=== PATIENT | male | born 1960 | race Caucasian/White ===

== ENCOUNTER 2017-06-16 10:27 | Inpatient (IN) | payer SELFPAY ==
[2017-06-16] MEDS ORDERED: Succinylcholine Chloride 20 MG/ML 10 ml SYRINGE FS ONE (10:35)
[2017-06-16] MEDS ORDERED: Propofol 1,000 MG/100 ML VIAL IV ONE ×2 (10:46→21:25)
[2017-06-16 11:01] LABS: #Basophils 0.1 thou/uL (0.0-0.2); #Eosinphils 0.2 thou/uL (0.0-0.7); #Lymphocytes 2.1 thou/uL (1.20-3.40); #Monocytes 1.2 thou/uL (0.11-0.59); #Neutrophils 8.5 thou/uL (1.40-6.50); %Basophils 0.7 % (0.0-1.0); %Eosinophils 1.6 % (0.0-10.0); %Monocytes 10.2 % (0.0-10.0); %Neutrophils 70.6 % (42.0-75.0); Hemoglobin 13.2 g/dL (14.0-18.0); Mean Corpuscular HGB CONC 31.6 g/dL (32.0-36.0); Mean Corpuscular Hemoglobin 27.3 pg (27.0-31.0); Mean Corpuscular Volume 86.5 fl (80.0-94.0); Mean Platelet Volume 7.8 fL (7.4-10.4); Platelet Count 342 thou/uL (130-400); RBC Distribution Width 15.1 % (11.5-14.5); Red Blood Cell (RBC) Count 4.83 mill/uL (4.70-6.10)
[2017-06-16 11:17] LABS: PTT 34.9 SEC (22.9-36.1); Prothrombin Time 13.6 SEC (12.0-14.7)
[2017-06-16 11:25] LABS: ALT (SGPT) 28 U/L (8-55); AST (SGOT) 22 U/L (5-34); Albumin 3.7 g/dL (3.5-5.0); Alcohol Less than 10 mg/dL (Less than 10); Alkaline Phosphatase 98 U/L (40-150); Anion Gap 15 mmol/L (10-20); BUN (Urea Nitrogen) 17 mg/dL (8.4-25.7); Bilirubin, Total 0.5 mg/dL (0.2-1.2); Calc. Creatinine Clearance 0 mL/min (70-130); Calcium 8.9 mg/dL (7.8-10.44); Carbon Dioxide 25 mmol/L (22-29); Chloride 102 mmol/L (98-107); Estimated GFR-MDRD Greater than 90; Globulin 3.4 g/dL (2.4-3.5); Glucose 97 mg/dL (70-105); Lipase 117 U/L (8-78); Potassium 4.6 mmol/L (3.5-5.1); Protein, Total 7.1 g/dL (6.0-8.3); Sodium 137 mmol/L (136-145)
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
[2017-06-16 11:51] LABS: Actual Bicarbonate (HCO3a) 26.6 mEq/L (22-26); Base Excess (BEa) 2.4 mEq/L (0 (+/-) 2.5); CO2 Tension 39.8 mmHg (35.0-45.0); Hematocrit-ABG 40.2 % (42.0-52.0); O2 Tension (PaO2) 52.6 mmHg (80.0-100.0); pH, Arterial 7.44 (7.35-7.45)
[2017-06-16 11:52] LABS: Analyzer IN Cardio ER; Calcium, Ionized 1.1 mmol/L (1.12-1.30); Hemoglobin (Hb) 12.1 g/dL (14.0-18.0); Puncture Site RRA
[2017-06-16 11:57] LABS: CKMB 5.6 ng/mL (0-6.6); Troponin I 0.021 ng/mL (< 0.028)
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
[2017-06-16 12:02] LABS: Bilirubin Negative (Negative); Blood, Urine Negative (Negative); Clarity CLEAR (Clear); Glucose, Urine (Dipstick) Negative (Negative); Leukocyte Negative (Negative); Nitrite Negative (Negative); Protein, Urine (Dipstick) Negative (Neg-Trace); Specific Gravity, Urine 1.032 (1.002-1.036); Urobilinogen 0.2 mg/dL (0.2-1.0)
[2017-06-16] MEDS ORDERED: Adacel (T-DAP) 0.5 ML VIAL ONE (12:07)
[2017-06-16 12:16] LABS: Amphetamine Detected (NotDetected); Benzodiazepine Screen Detected (NotDetected); Medtox Reader # READER 1; Methamphetamine Detected (NotDetected)
[2017-06-16 12:17] LABS: Barbiturates Screen Not Detected (NotDetected); Cocaine Metabolite Screen Not Detected (NotDetected); Medtox Control Line Valid? VALID (VALID); Methadone Not Detected (NotDetected); Opiate Screen Not Detected (NotDetected); Oxycodone Screen Not Detected (NotDetected); Phencyclidine (PCP) Not Detected (NotDetected); THC/Cannabinoid Screen Not Detected (NotDetected); Tricyclic Screen Not Detected (NotDetected)
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
[2017-06-16] MEDS ORDERED: Dextrose 5% in Water 1,000 ML IV PRN (13:12)
[2017-06-16] MEDS ORDERED: Dextrose 50% Abboject 50 ML SYRINGE SLOW IVP PRN (13:12)
[2017-06-16] MEDS ORDERED: Ondansetron HCl/PF 4 MG/2 ML Vial IVP PRN (13:12)
[2017-06-16 13:46] VITALS: BMI 35.3
[2017-06-16 13:50] LABS: Magnesium 2.4 mg/dL (1.6-2.6); Phosphorus 3.6 mg/dL (2.3-4.7)
[2017-06-16] MEDS: Sodium Chloride 0.9% 1,000 ML IV SCH ×2 (14:00→21:45)
--- NOTE | 2017-06-16 14:13 | ULT ---
ULTRASOUND WITH DOPPLER DUPLEX VENOUS LOWER EXTREMITIES BILATERAL: HISTORY: 56-year-old male with bilateral lower extremity edema. TECHNIQUE: Color flow Doppler, spectral waveform analysis of pulsed Doppler, and joshua-scale imaging with daniel viktor and augmentation, were used to evaluate the bilateral common femoral, femoral, popliteal, bed worker ior tibial, and superficial femoral, veins; and the proximal portions of the profunda femoral and gre ater saphenous, veins. FINDINGS: There is normal compressibility, demonstration of blood flow by color Doppler and pulsed Doppler, and response to augmentation, in all interrogated veins. IMPRESSION: Negative. No deep vein thrombosis in the bilateral lower extremities. edil POS: [facility]
[2017-06-16 14:56] LABS: Lactic Acid 3.5 mmol/L (0.5-2.2)
[2017-06-16] MEDS ORDERED: FLU VACC QS2017-18 36 mo. & older 0.5 ML SYRINGE IM ONE (15:15)
[2017-06-16] MEDS ORDERED: ISOVUE-370 76%-LOCM 1 ML ONE (16:52)
[2017-06-16] MEDS ORDERED: Morphine 4 MG/ML Carpuject SLOW IVP PRN (19:52)
[2017-06-16] MEDS: Famotidine/PF 20 mg/2ml Vial SLOW IVP SCH (20:35)
[2017-06-16] MEDS ORDERED: Labetalol HCl 100 MG/20 ML VIAL SLOW IVP PRN (20:39)
[2017-06-16] MEDS: hydrALAZINE 20 MG/ML VIAL SLOW IVP PRN ×2 (20:59→21:00)
[2017-06-16] MEDS ORDERED: Famotidine 40 MG/4 ML VIAL SLOW IVP SCH (21:00)
[2017-06-16] MEDS ORDERED: Sedation Protocol FS ONE (21:29)
[2017-06-16] MEDS ORDERED: DISCONTINUE PREVIOUS NARCOTIC PAIN MEDICATIONS AND BENZODIAZEPINES FS SCH (21:30)
[2017-06-16] MEDS ORDERED: Lorazepam 2 MG/ML VIAL SLOW IVP PRN (21:30)
[2017-06-16] MEDS ORDERED: Morphine 2 MG/ML SYRINGE SLOW IVP PRN (21:30)
[2017-06-16] MEDS ORDERED: fentaNYL Citrate/PF 2,000 MCG in Sodium Chloride 0.9% 60 ML IV SCH (21:30)
[2017-06-17] MEDS: Propofol 1,000 MG/100 ML VIAL IV PRN ×2 (00:12→03:43)
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
[2017-06-17 04:33] LABS: #Eosinphils 0.1 thou/uL (0.0-0.7); #Lymphocytes 1.6 thou/uL (1.20-3.40); #Monocytes 0.9 thou/uL (0.11-0.59); #Neutrophils 6.7 thou/uL (1.40-6.50); %Basophils 0.2 % (0.0-1.0); %Eosinophils 0.9 % (0.0-10.0); %Lymphocytes 17.2 % (21.0-51.0); %Monocytes 9.4 % (0.0-10.0); %Neutrophils 72.3 % (42.0-75.0); Hemoglobin 11.8 g/dL (14.0-18.0); Mean Corpuscular HGB CONC 33.1 g/dL (32.0-36.0); Mean Corpuscular Hemoglobin 27.8 pg (27.0-31.0); Platelet Count 330 thou/uL (130-400); RBC Distribution Width 15.5 % (11.5-14.5); Red Blood Cell (RBC) Count 4.24 mill/uL (4.70-6.10); White Blood Cell (WBC) Count 9.3 thou/uL (4.8-10.8)
[2017-06-17 04:37] LABS: Anion Gap 13 mmol/L (10-20); BUN (Urea Nitrogen) 14 mg/dL (8.4-25.7); Calc. Creatinine Clearance 181 mL/min (70-130); Calcium 8.2 mg/dL (7.8-10.44); Carbon Dioxide 23 mmol/L (22-29); Chloride 107 mmol/L (98-107); Estimated GFR-MDRD Greater than 90; Glucose 99 mg/dL (70-105); Potassium 3.4 mmol/L (3.5-5.1); Sodium 140 mmol/L (136-145)
[2017-06-17] MEDS: Sodium Chloride 0.9% 1,000 ML IV SCH (05:37)
[2017-06-17 07:20] LABS: Actual Bicarbonate (HCO3a) 22.6 mEq/L (22-26); Base Excess (BEa) 0.4 mEq/L (0 (+/-) 2.5); CO2 Tension 28.4 mmHg (35.0-45.0); Calcium, Ionized 1.1 mmol/L (1.12-1.30); Hematocrit-ABG 34.4 % (42.0-52.0); Hemoglobin (Hb) 10.9 g/dL (14.0-18.0); O2 Tension (PaO2) 59.7 mmHg (80.0-100.0); pH, Arterial 7.52 (7.35-7.45)
[2017-06-17 07:21] LABS: Puncture Site RRA
[2017-06-17 08:31] LABS: Phosphorus 2.5 mg/dL (2.3-4.7)
[2017-06-17] MEDS: Enoxaparin Sodium 40 MG/0.4 ML SYRINGE SC SCH ×2 (08:51→21:14)
[2017-06-17] MEDS: Famotidine/PF 20 mg/2ml Vial SLOW IVP SCH ×2 (08:51→21:02)
--- NOTE | 2017-06-17 08:57 | RAD ---
PORTABLE CHEST: Date: 06/17/17 Time: 0442 hours HISTORY: Respiratory failure. FINDINGS/IMPRESSION: Comparison made with exam from previous day. Endotracheal and nasogastric tubes are again seen. There are patchy areas of consolidation in the low er lung zones. No pneumothoraces are seen. Small pleural effusions cannot be excluded. POS: [facility]
[2017-06-17] MEDS ORDERED: Acetaminophen 650 MG Suppository PR PRN (09:15)
[2017-06-17] MEDS ORDERED: Furosemide 20 MG/2 ML VIAL SLOW IVP SCH (12:30)
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
[2017-06-17] MEDS: Oxymetazoline HCl 0.05% ( 15 ML ) NASAL SCH ×2 (15:00→21:02)
[2017-06-17] MEDS: hydrALAZINE 20 MG/ML VIAL SLOW IVP PRN ×2 (17:56→22:19)
[2017-06-17] MEDS: Amoxicillin/Potassium Clav 875 MG TAB PO SCH (21:00)
[2017-06-17] MEDS: Acetaminophen 325 MG TAB PO PRN (21:00)
[2017-06-17] MEDS: Furosemide 20 MG/2 ML VIAL SLOW IVP SCH (21:02)
[2017-06-17] MEDS ORDERED: Enoxaparin Sodium 30 MG/0.3 ML SYRINGE SC SCH (21:15)
--- NOTE | 2017-06-17 21:34 | PRG ---
DATE OF SERVICE: 06/17/2017 SUBJECTIVE: This patient has been extubated, a 56-year-old male status post overdose. OBJECTIVE: VITAL SIGNS: Reviewed and is otherwise had been stable. Physical exam is unremarkable. ASSESSMENT AND PLAN: Continue care as detailed in daily progress note. Continue to monitor. DISCHARGE DISPOSITION: Pending.
[2017-06-18 04:35] LABS: Anion Gap 11 mmol/L (10-20); BUN (Urea Nitrogen) 11 mg/dL (8.4-25.7); Calc. Creatinine Clearance 181 mL/min (70-130); Calcium 8.5 mg/dL (7.8-10.44); Carbon Dioxide 26 mmol/L (22-29); Chloride 105 mmol/L (98-107); Estimated GFR-MDRD Greater than 90; Glucose 108 mg/dL (70-105); Magnesium 2.2 mg/dL (1.6-2.6); Phosphorus 3.3 mg/dL (2.3-4.7); Potassium 3.3 mmol/L (3.5-5.1); Sodium 139 mmol/L (136-145)
[2017-06-18] MEDS: Amoxicillin/Potassium Clav 875 MG TAB PO SCH ×2 (08:47→20:47)
[2017-06-18] MEDS: Famotidine 20 MG TAB PO SCH ×2 (08:48→20:47)
[2017-06-18] MEDS: Furosemide 20 MG/2 ML VIAL SLOW IVP SCH (08:48)
[2017-06-18] MEDS: Oxymetazoline HCl 0.05% ( 15 ML ) NASAL SCH ×2 (08:49→14:46)
[2017-06-18] MEDS: Enoxaparin Sodium 30 MG/0.3 ML SYRINGE SC SCH ×2 (08:51→20:48)
[2017-06-18] MEDS: Acetaminophen 325 MG TAB PO PRN ×4 (08:59→20:59)
[2017-06-18] MEDS ORDERED: Potassium Chloride 20 MEQ TAB PO SCH (09:45)
[2017-06-18] MEDS: hydrALAZINE 20 MG/ML VIAL SLOW IVP PRN (10:17)
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
[2017-06-18] MEDS ORDERED: Sodium Chloride 0.65% Nasal 44 ML BOT EA NARE PRN (15:28)
[2017-06-18] MEDS ORDERED: Carvedilol 3.125 MG TAB PO SCH (17:00)
[2017-06-18] MEDS: Metoprolol Tartrate 50 MG TAB PO SCH (21:30)
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
[2017-06-19 06:20] LABS: Anion Gap 9 mmol/L (10-20); BUN (Urea Nitrogen) 16 mg/dL (8.4-25.7); Calc. Creatinine Clearance 177 mL/min (70-130); Calcium 9.1 mg/dL (7.8-10.44); Carbon Dioxide 29 mmol/L (22-29); Chloride 107 mmol/L (98-107); Estimated GFR-MDRD Greater than 90; Glucose 101 mg/dL (70-105); Magnesium 2.5 mg/dL (1.6-2.6); Phosphorus 3.4 mg/dL (2.3-4.7); Potassium 3.7 mmol/L (3.5-5.1); Sodium 141 mmol/L (136-145)
[2017-06-19] MEDS ORDERED: Potassium Chloride 10 MEQ TAB PO SCH (08:00)
[2017-06-19] MEDS: Metoprolol Tartrate 50 MG TAB PO SCH (08:25)
[2017-06-19] MEDS: Enoxaparin Sodium 30 MG/0.3 ML SYRINGE SC SCH (08:25)
[2017-06-19] MEDS: Famotidine 20 MG TAB PO SCH (08:25)
[2017-06-19] MEDS: Amoxicillin/Potassium Clav 875 MG TAB PO SCH (08:25)
[2017-06-19] MEDS ORDERED: Furosemide 20 MG TAB PO SCH (09:00)
[2017-06-19 12:28] VITALS: BP 130/75; TEMP 99
== END 2017-06-19 14:04 | disposition home or self-care (01) | DRG 82 ==
LOC: ERS 10:27 → CCU 12:55 → SURG B 06-18 17:26
PROVIDERS: ADMIT Surgery; ATTEND Surgery
PROC: 5A1945Z Respiratory Ventilation, 24-96 Consecutive Hours (ICD-10-PCS; principal; 2017-06-16)
PROC: 0BH17EZ Insertion of Endotracheal Airway into Trachea, Via Natural or Artificial Opening (ICD-10-PCS; 2017-06-16)
PROC: 3E0234Z Introduction of Serum, Toxoid and Vaccine into Muscle, Percutaneous Approach (ICD-10-PCS; 2017-06-16)
DX: S06.2X9A Diffuse traumatic brain injury with loss of consciousness of unspecified duration, initial encounter (principal); J18.9 Pneumonia, unspecified organism; J96.00 Acute respiratory failure, unspecified whether with hypoxia or hypercapnia; I50.33 Acute on chronic diastolic (congestive) heart failure; I11.0 Hypertensive heart disease with heart failure; R40.2310 Coma scale, best motor response, none, unspecified time; R40.2110 Coma scale, eyes open, never, unspecified time; R40.2210 Coma scale, best verbal response, none, unspecified time; V49.40XA Driver injured in collision with unspecified motor vehicles in traffic accident, initial encounter; F19.10 Other psychoactive substance abuse, uncomplicated; Z23 Encounter for immunization; E66.01 Morbid (severe) obesity due to excess calories; M19.90 Unspecified osteoarthritis, unspecified site; G47.33 Obstructive sleep apnea (adult) (pediatric); Z72.0 Tobacco use; E87.6 Hypokalemia; Z68.35 Body mass index [BMI] 35.0-35.9, adult
CPT/HCPCS: 31500; 36415; 51702; 70450; 71045; 71260; 72125; 74177; 80048; 80053; 80306; 80307; 81003; 82550; 82553; 82805; 83605; 83690; 83735; 83880; 84100; 84443; 84484; 85025; 85610; 85730; 86850; 86900; 86901; 87070; 87077; 87205; 89220; 90471; 90715; 93005; 93306; 93970; 94002; 94003; 94640; 94660; 94760; 96365; 96366; G0390; G8978-GP-CJ; G8979-GP-CI; G8987-GO-CK; G8988-GO-CK; G8989-GO-CK; J0360; J1650; J1940; J2704; J7620; S0028

== ENCOUNTER 2018-09-17 09:32 | Outpatient (CLI) | payer OTHER ==
--- NOTE | 2018-09-17 10:36 | RAD ---
EXAM: 3 views of the left knee HISTORY: Knee pain COMPARISON: None FINDINGS: No knee effusion is seen. There is no evidence of acute fracture or dislocation. Moderate t ricompartmental joint space narrowing and osteophyte formation is seen consistent with osteoarthritis. No soft tissue swelling is present. IMPRESSION: Moderate left knee osteoarthritis
--- NOTE | 2018-09-17 11:14 | RAD ---
RIGHT KNEE 3 VIEWS: HISTORY: Knee pain. FINDINGS: Moderate degenerative change is present. Loss of medial joint space. Prominent spurring from the me dial joint compartment involving medial, femoral, and tibial condyles. Prominent spurring and narrow ing at the patella femoral joint. Possible small joint effusion. IMPRESSION: Moderate to severe degenerative changes primarily involving medial joint space and patella femoral nalini int. POS: [facility]
== END 2018-09-17 09:33 | disposition home or self-care (01) ==
LOC: SCSRAD 09:32
PROVIDERS: ATTEND Family Medicine
DX: M25.562 Pain in left knee (principal); M25.561 Pain in right knee; M17.11 Unilateral primary osteoarthritis, right knee; M17.12 Unilateral primary osteoarthritis, left knee

== ENCOUNTER 2022-03-19 07:43 | Inpatient (IN) | payer OTHER ==
[2022-03-16 15:36] LABS: Bilirubin Neg (Negative); Blood, Urine 10 (Negative); Clarity Clear (Clear); Glucose, Urine (Dipstick) Normal (Negative); Ketone, Urine Negative (Negative); Leukocyte Negative (Negative); Nitrite Negative (Negative); Protein, Urine (Dipstick) Negative (Neg-Trace); Specific Gravity, Urine 1.015 (1.005-1.030); Urobilinogen Normal mg/dL (Less than 2)
[2022-03-16 15:38] LABS: #Basophils 0.1 10x3/uL (0.0-0.2); #Eosinphils 0.2 10x3/uL (0.0-0.5); #Monocytes 0.7 10x3/uL (0.0-1.1); #Neutrophils 4.7 10x3/uL (1.5-8.4); %Basophils 0.7 % (0.0-2.0); %Eosinophils 2.7 % (0.0-6.0); %Lymphocytes 20.8 % (18.0-47.0); %Monocytes 9.8 % (0.0-10.0); %Neutrophils 65.7 % (40.0-75.0); Hemoglobin 14.8 g/dL (13.5-17.5); Mean Corpuscular HGB CONC 32.6 g/dL (32.0-36.0); Mean Corpuscular Hemoglobin 29.9 pg (27.0-33.0); Mean Corpuscular Volume 91.7 fl (81.2-95.1); Platelet Count 370 10x3/uL (150-450); RBC Distribution Width 14.3 % (11.5-14.5); Red Blood Cell (RBC) Count 4.95 10x6/uL (4.32-5.72); White Blood Cell (WBC) Count 7.1 10x3/uL (3.5-10.5)
[2022-03-16 16:00] LABS: INR-International Normal Ratio 0.9; Prothrombin Time 10.2 sec (9.5-12.1)
[2022-03-16 16:02] LABS: Anion Gap 15 mmol/L (10-20); BUN (Urea Nitrogen) 13 mg/dL (8.4-25.7); Calc. Creatinine Clearance 0 mL/min (70-130); Calcium 9.3 mg/dL (7.8-10.44); Carbon Dioxide 28 mmol/L (22-29); Chloride 104 mmol/L (98-107); Estimated GFR 100; Glucose 82 mg/dL (70-105); Potassium 4.1 mmol/L (3.5-5.1); Sodium 143 mmol/L (136-145)
[2022-03-19] MEDS ORDERED: Sodium Chloride 0.9% 100 ML ONE ×2 (08:11→09:43)
[2022-03-19] MEDS ORDERED: Tranexamic Acid 1,000 MG/10 ML VIAL ONE ×2 (08:11→11:49)
[2022-03-19] MEDS ORDERED: VANCOMYCIN 2 GRAM/500 ML BAG 2 GM in Premix Bag 1 BAG IVPB SCH ×3 (08:15→21:00)
[2022-03-19] MEDS ORDERED: Ropivacaine 0.5% HCl/PF (150 MG/30 ML VIAL) ONE (08:24)
[2022-03-19] MEDS ORDERED: Midazolam HCl 2 mg/2 ml Vial ONE (08:24)
[2022-03-19] MEDS ORDERED: FENTANYL 50 MCG/ML 1 ML VIAL ONE ×2 (08:24→15:06)
[2022-03-19] MEDS ORDERED: Cefepime 2 GM in Sodium Chloride 0.9% 100 ML IVPB SCH (08:30)
[2022-03-19] MEDS ORDERED: CEFAZOLIN 2 GM in Sodium Chloride 0.9% 100 ML IVPB SCH (08:45)
[2022-03-19 09:18] LABS: SARS-CoV-2 NAA Rapid Test Not Detected (NotDetected)
[2022-03-19] MEDS ORDERED: Bupivacaine PF 0.5% 30 ML VIAL ONE (09:29)
[2022-03-19] MEDS ORDERED: CEFAZOLIN 2 GM VIAL ONE (09:43)
[2022-03-19] MEDS ORDERED: SUGAMMADEX SODIUM 200 MG/2 ML VIAL ONE (09:44)
[2022-03-19] MEDS ORDERED: Lidocaine 1% (PF) 30 ML VIAL ONE (10:03)
[2022-03-19] MEDS ORDERED: methylPREDNISolone Acetate 40 mg/ml Vial ONE (10:03)
[2022-03-19] MEDS ORDERED: ePHEDrine 50 MG/ML VIAL ONE (10:09)
[2022-03-19] MEDS ORDERED: Ondansetron PF 4 MG/2 ML Vial ONE (10:09)
[2022-03-19] MEDS ORDERED: PHENYLEPHRINE-NS 100 MCG/ML 10 ML SYRINGE ONE (10:09)
[2022-03-19] MEDS ORDERED: Rocuronium Bromide 10 MG/ML (10ML VIAL) ONE (10:09)
[2022-03-19] MEDS ORDERED: Zolpidem Tartrate 5 MG TAB PO PRN ×2 (10:12→12:00)
[2022-03-19] MEDS ORDERED: traMADol HCl 50 MG TAB PO PRN ×2 (10:12→12:00)
[2022-03-19] MEDS ORDERED: diphenhydrAMINE 25 MG CAP PO PRN (10:12)
[2022-03-19] MEDS ORDERED: Promethazine HCl 25 MG/ML VIAL IM PRN ×3 (10:12→12:12)
[2022-03-19] MEDS ORDERED: Acetaminophen 325 MG TAB PO PRN (10:12)
[2022-03-19] MEDS ORDERED: Ondansetron PF 4 MG/2 ML Vial IVP PRN ×2 (10:12→12:00)
[2022-03-19] MEDS ORDERED: Tranexamic Acid 1,000 MG in Sodium Chloride 0.9% 100 ML IVPB SCH (10:15)
[2022-03-19] MEDS ORDERED: FENTANYL 50 MCG/ML 1 ML VIAL SLOW IVP PRN (11:25)
[2022-03-19] MEDS ORDERED: HYDROmorphone 0.5 MG/0.5 ML SYRINGE ONE (11:49)
[2022-03-19] MEDS ORDERED: Ropivacaine 0.2% 550 ML 550 ML NERVE BLCK SCH (12:00)
[2022-03-19] MEDS ORDERED: Ondansetron HCl/PF 4 MG/2 ML Vial IVP PRN (12:12)
[2022-03-19] MEDS ORDERED: Promethazine HCl 25 MG/ML VIAL IVPB PRN (12:12)
[2022-03-19] MEDS ORDERED: Metoprolol Tartrate 5 MG/5 ML VIAL ONE (13:08)
[2022-03-19] MEDS ORDERED: Meperidine HCl/PF 25 MG/ML VIAL ONE (13:29)
[2022-03-19 15:05] LABS: Actual Bicarbonate (HCO3a) 25.4 mEq/L (22-28); CO2 Tension 43.8 mmHg (35.0-45.0); Calcium, Ionized (arterial) 1.14 mmol/L (1.12-1.30); Carboxyhemoglobin (COHb) 0.9 gm% (0.0-3.0); Hemoglobin (Hb) 14.6 g/dL (14.0-18.0); O2 Tension (PaO2), arterial 57.6 mmHg (80.0-100.0); Potassium - ABG Lab 4.11 mmol/L (3.70-5.30); Puncture Site RRA; pH, Arterial 7.38 (7.35-7.45)
[2022-03-19 15:51] VITALS: BMI 39.7
[2022-03-19] MEDS: CEFAZOLIN 2 GM in Sodium Chloride 0.9% 100 ML IVPB SCH (18:16)
[2022-03-19] MEDS: Aspirin 81 mg Enteric Coated Tablet PO SCH (20:03)
[2022-03-19] MEDS: Ferrous Gluconate 324 MG TAB PO SCH (20:04)
[2022-03-19] MEDS: Senokot S 8.6-50 MG TAB PO SCH (20:04)
[2022-03-19] MEDS: Furosemide 40 MG TAB PO SCH (20:04)
[2022-03-19] MEDS: HYDROcodone/Acetaminophen 10/325 mg Tablet PO PRN (20:04)
[2022-03-19] MEDS: Lisinopril 20 MG TAB PO SCH (20:04)
[2022-03-20] MEDS: CEFAZOLIN 2 GM in Sodium Chloride 0.9% 100 ML IVPB SCH (03:06)
[2022-03-20] MEDS: HYDROcodone/Acetaminophen 10/325 mg Tablet PO PRN ×2 (03:07→21:08)
[2022-03-20 05:53] LABS: Hemoglobin 13.7 g/dL (14.0-18.0); Mean Corpuscular Hemoglobin 30.4 pg (27.0-31.0); Mean Corpuscular Volume 95.2 fl (78.0-98.0); Mean Platelet Volume 7.2 fL (7.4-10.4); Platelet Count 307 10x3/uL (130-400); RBC Distribution Width 13.5 % (11.5-14.5); Red Blood Cell (RBC) Count 4.52 mill/uL (4.70-6.10); White Blood Cell (WBC) Count 11.8 10x3/uL (4.8-10.8)
[2022-03-20 06:33] LABS: Anion Gap 12 mmol/L (10-20); BUN (Urea Nitrogen) 13 mg/dL (8.4-25.7); Calc. Creatinine Clearance 163 mL/min (70-130); Calcium 8.6 mg/dL (7.8-10.44); Carbon Dioxide 27 mmol/L (22-29); Chloride 100 mmol/L (98-107); Estimated GFR 99; Glucose 118 mg/dL (70-105); Potassium 3.8 mmol/L (3.5-5.1); Sodium 135 mmol/L (136-145)
[2022-03-20] MEDS: Multivitamin W/ Minerals 1 TAB PO SCH (09:14)
[2022-03-20] MEDS: Metoprolol Tartrate 100 MG TAB PO SCH (09:14)
[2022-03-20] MEDS: Aspirin 81 mg Enteric Coated Tablet PO SCH ×2 (09:14→21:06)
[2022-03-20] MEDS: Lisinopril 20 MG TAB PO SCH ×2 (09:14→21:07)
[2022-03-20] MEDS: Senokot S 8.6-50 MG TAB PO SCH ×2 (09:14→21:08)
[2022-03-20] MEDS: Potassium Chloride 20 MEQ TAB PO SCH (09:14)
[2022-03-20] MEDS: Furosemide 40 MG TAB PO SCH ×2 (09:14→21:08)
[2022-03-20] MEDS: Ferrous Gluconate 324 MG TAB PO SCH ×2 (09:15→21:08)
[2022-03-20] MEDS: Clindamycin 150 MG CAP PO SCH ×2 (10:43→19:48)
[2022-03-21] MEDS: Clindamycin 150 MG CAP PO SCH ×3 (01:37→18:16)
[2022-03-21 06:27] LABS: Hemoglobin 12.7 g/dL (14.0-18.0); Mean Corpuscular HGB CONC 31.7 g/dL (32.0-36.0); Mean Corpuscular Hemoglobin 29.9 pg (27.0-31.0); Mean Corpuscular Volume 94.4 fl (78.0-98.0); Mean Platelet Volume 7.9 fL (7.4-10.4); Platelet Count 262 10x3/uL (130-400); RBC Distribution Width 13.7 % (11.5-14.5); Red Blood Cell (RBC) Count 4.25 mill/uL (4.70-6.10); White Blood Cell (WBC) Count 14.3 10x3/uL (4.8-10.8)
[2022-03-21] MEDS: HYDROcodone/Acetaminophen 10/325 mg Tablet PO PRN ×2 (09:00→20:48)
[2022-03-21] MEDS: Metoprolol Tartrate 100 MG TAB PO SCH (09:01)
[2022-03-21] MEDS: Aspirin 81 mg Enteric Coated Tablet PO SCH ×2 (09:02→20:49)
[2022-03-21] MEDS: Ferrous Gluconate 324 MG TAB PO SCH ×2 (09:02→20:49)
[2022-03-21] MEDS: Lisinopril 20 MG TAB PO SCH ×2 (09:02→20:49)
[2022-03-21] MEDS: Potassium Chloride 20 MEQ TAB PO SCH (09:02)
[2022-03-21] MEDS: Senokot S 8.6-50 MG TAB PO SCH ×2 (09:02→20:49)
[2022-03-21] MEDS: Multivitamin W/ Minerals 1 TAB PO SCH (09:02)
[2022-03-21] MEDS: Furosemide 40 MG TAB PO SCH ×2 (09:02→20:49)
[2022-03-22] MEDS: Clindamycin 150 MG CAP PO SCH ×2 (01:34→08:56)
[2022-03-22 05:50] LABS: Mean Corpuscular HGB CONC 31.7 g/dL (32.0-36.0); Mean Corpuscular Hemoglobin 30.3 pg (27.0-31.0); Mean Corpuscular Volume 95.6 fl (78.0-98.0); Mean Platelet Volume 7.6 fL (7.4-10.4); Platelet Count 276 10x3/uL (130-400); RBC Distribution Width 13.6 % (11.5-14.5); Red Blood Cell (RBC) Count 4.29 mill/uL (4.70-6.10); White Blood Cell (WBC) Count 13.5 10x3/uL (4.8-10.8)
[2022-03-22] MEDS: Senokot S 8.6-50 MG TAB PO SCH (08:54)
[2022-03-22] MEDS: HYDROcodone/Acetaminophen 10/325 mg Tablet PO PRN (08:54)
[2022-03-22] MEDS: Furosemide 40 MG TAB PO SCH (08:54)
[2022-03-22] MEDS: Aspirin 81 mg Enteric Coated Tablet PO SCH (08:54)
[2022-03-22] MEDS: Ferrous Gluconate 324 MG TAB PO SCH (08:54)
[2022-03-22] MEDS: Multivitamin W/ Minerals 1 TAB PO SCH (08:56)
[2022-03-22] MEDS: Potassium Chloride 20 MEQ TAB PO SCH (08:56)
[2022-03-22] MEDS: Lisinopril 20 MG TAB PO SCH (08:56)
[2022-03-22] MEDS: Metoprolol Tartrate 100 MG TAB PO SCH (08:56)
[2022-03-22 12:16] VITALS: BP 134/89; TEMP 97.9
== END 2022-03-22 15:04 | disposition home or self-care (01) | DRG 470 ==
LOC: SDC 07:43 → SJJU 15:35
PROVIDERS: ADMIT Orthopaedic Surgery; ATTEND Orthopaedic Surgery
PROC: 0SRC0J9 Replacement of Right Knee Joint with Synthetic Substitute, Cemented, Open Approach (ICD-10-PCS; principal; 2022-03-19)
PROC: 3E0U33Z Introduction of Anti-inflammatory into Joints, Percutaneous Approach (ICD-10-PCS; 2022-03-19)
DX: M17.0 Bilateral primary osteoarthritis of knee (principal); Z20.822 Contact with and (suspected) exposure to COVID-19; G47.33 Obstructive sleep apnea (adult) (pediatric); E66.01 Morbid (severe) obesity due to excess calories; F32.A Depression, unspecified; F41.9 Anxiety disorder, unspecified; I11.0 Hypertensive heart disease with heart failure; I50.810 Right heart failure, unspecified; I27.81 Cor pulmonale (chronic); I27.20 Pulmonary hypertension, unspecified; Z79.899 Other long term (current) drug therapy; Z82.49 Family history of ischemic heart disease and other diseases of the circulatory system; Z68.39 Body mass index [BMI] 39.0-39.9, adult
CPT/HCPCS: 36415; 36600; 80048; 81003; 82805; 85025; 85027; 85610; 86850; 86900; 86901; 94640; A4306; C1713; C1776; J1030; J1170; J2001; J2175; J2250; J2405; J2795; J3010; J3370; J3490; J7030; J7620; S0020; U0002

== ENCOUNTER 2022-05-28 06:45 | Observation (INO) | payer OTHER ==
[2022-05-28] MEDS ORDERED: Ipratropium/Albuterol 3 ML NEB ONE ×2 (07:06→14:07)
[2022-05-28 07:28] LABS: #Eosinphils 0.1 thou/uL (0.0-0.7); #Lymphocytes 0.9 thou/uL (1.20-3.40); #Neutrophils 11.4 thou/uL (1.40-6.50); %Basophils 0.2 % (0.0-1.0); %Eosinophils 0.5 % (0.0-10.0); %Lymphocytes 6.7 % (21.0-51.0); %Monocytes 7.2 % (0.0-10.0); %Neutrophils 85.5 % (42.0-75.0); Hemoglobin 13.9 g/dL (14.0-18.0); Mean Corpuscular HGB CONC 33.3 g/dL (32.0-36.0); Mean Corpuscular Hemoglobin 30.5 pg (27.0-31.0); Mean Corpuscular Volume 91.5 fl (78.0-98.0); Mean Platelet Volume 8.2 fL (7.4-10.4); Platelet Count 306 10x3/uL (130-400); RBC Distribution Width 14.9 % (11.5-14.5); Red Blood Cell (RBC) Count 4.56 mill/uL (4.70-6.10); White Blood Cell (WBC) Count 13.3 10x3/uL (4.8-10.8)
[2022-05-28 07:48] LABS: ALT (SGPT) 22 U/L (8-55); AST (SGOT) 23 U/L (5-34); Albumin 3.8 g/dL (3.5-5.0); Alkaline Phosphatase 87 U/L (40-110); Anion Gap 15 mmol/L (10-20); BUN (Urea Nitrogen) 12 mg/dL (8.4-25.7); Bilirubin, Total 1.1 mg/dL (0.2-1.2); Calc. Creatinine Clearance 0 mL/min (70-130); Calcium 8.9 mg/dL (7.8-10.44); Carbon Dioxide 25 mmol/L (22-29); Chloride 102 mmol/L (98-107); Estimated GFR 102; Globulin 4.1 g/dL (2.4-3.5); Glucose 98 mg/dL (70-105); Potassium 3.8 mmol/L (3.5-5.1); Protein, Total 7.9 g/dL (6.0-8.3); Sodium 138 mmol/L (136-145)
[2022-05-28 09:40] LABS: SARS-CoV-2 NAA Rapid Test Not Detected (NotDetected)
[2022-05-28] MEDS ORDERED: Guaifenesin DM 100-10/5 ML UDCUP PO PRN (09:54)
[2022-05-28] MEDS ORDERED: Ondansetron PF 4 MG/2 ML Vial IVP PRN (09:54)
[2022-05-28] MEDS ORDERED: Senokot S 8.6-50 MG TAB PO PRN (09:54)
[2022-05-28] MEDS ORDERED: HYDROcodone/Acetaminophen 5/325 mg Tablet PO PRN (09:54)
[2022-05-28 11:05] LABS: Amphetamine Detected (NotDetected); Barbiturates Screen Not Detected (NotDetected); Benzodiazepine Screen Not Detected (NotDetected); Cocaine Metabolite Screen Not Detected (NotDetected); Methadone Not Detected (NotDetected); Methamphetamine Detected (NotDetected); Opiate Screen Not Detected (NotDetected); Oxycodone Screen Not Detected (NotDetected); Phencyclidine (PCP) Not Detected (NotDetected); THC/Cannabinoid Screen Not Detected (NotDetected); Tricyclic Screen Not Detected (NotDetected)
[2022-05-28] MEDS ORDERED: Iopamidol-370 76% 500 ML 1 ML ONE (11:11)
[2022-05-28] MEDS ORDERED: Acetaminophen 325 MG TAB ONE (11:19)
[2022-05-28] MEDS: Acetaminophen 325 MG TAB PO PRN (11:20)
[2022-05-28] MEDS ORDERED: methylPREDNISolone Sod Succ 40 MG VIAL ONE (11:53)
[2022-05-28] MEDS: methylPREDNISolone Sod Succ 40 MG VIAL IVP SCH ×2 (11:57→18:42)
[2022-05-28] MEDS: Ipratropium/Albuterol 3 ML NEB NEB SCH ×3 (14:10→23:24)
[2022-05-28 15:50] VITALS: BMI 37.4
[2022-05-28] MEDS: Doxycycline 100 MG CAP PO SCH (20:55)
[2022-05-28] MEDS: Lisinopril 20 MG TAB PO SCH (20:55)
[2022-05-28] MEDS ORDERED: Non-Formulary Item 1 EACH (Lisinopril [Lisinopril] 40 MG Tablet) PO SCH (21:00)
[2022-05-29] MEDS: methylPREDNISolone Sod Succ 40 MG VIAL IVP SCH ×3 (00:13→11:04)
[2022-05-29] MEDS: Acetaminophen 325 MG TAB PO PRN (05:12)
[2022-05-29 05:22] LABS: #Lymphocytes 0.6 thou/uL (1.20-3.40); #Monocytes 0.7 thou/uL (0.11-0.59); #Neutrophils 15.1 thou/uL (1.40-6.50); %Eosinophils 0.1 % (0.0-10.0); %Lymphocytes 3.8 % (21.0-51.0); %Monocytes 4.1 % (0.0-10.0); Hemoglobin 13.6 g/dL (14.0-18.0); Mean Corpuscular HGB CONC 32.7 g/dL (32.0-36.0); Mean Corpuscular Hemoglobin 30.8 pg (27.0-31.0); Mean Corpuscular Volume 94.3 fl (78.0-98.0); Mean Platelet Volume 7.9 fL (7.4-10.4); Platelet Count 328 10x3/uL (130-400); RBC Distribution Width 14.9 % (11.5-14.5); Red Blood Cell (RBC) Count 4.43 mill/uL (4.70-6.10); White Blood Cell (WBC) Count 16.4 10x3/uL (4.8-10.8)
[2022-05-29 05:40] LABS: Anion Gap 13 mmol/L (10-20); BUN (Urea Nitrogen) 11 mg/dL (8.4-25.7); Calc. Creatinine Clearance 168 mL/min (70-130); Calcium 9.9 mg/dL (7.8-10.44); Carbon Dioxide 28 mmol/L (22-29); Chloride 102 mmol/L (98-107); Estimated GFR 102; Glucose 162 mg/dL (70-105); Potassium 3.7 mmol/L (3.5-5.1); Sodium 139 mmol/L (136-145)
[2022-05-29] MEDS: Ipratropium/Albuterol 3 ML NEB NEB SCH ×2 (07:24→12:31)
[2022-05-29] MEDS: Doxycycline 100 MG CAP PO SCH (08:31)
[2022-05-29] MEDS: Lisinopril 20 MG TAB PO SCH (08:31)
[2022-05-29] MEDS ORDERED: Aspirin 81 mg Enteric Coated Tablet PO SCH (09:00)
[2022-05-29] MEDS ORDERED: Multivitamin W/ Minerals 1 TAB PO SCH (09:00)
[2022-05-29] MEDS ORDERED: Metoprolol Tartrate 100 MG TAB PO SCH (09:00)
[2022-05-29] MEDS ORDERED: Furosemide 40 MG TAB PO SCH (09:00)
[2022-05-29 13:15] VITALS: BP 145/85; TEMP 98.6
[2022-05-29] MEDS ORDERED: methylPREDNISolone Sod Succ 40 MG VIAL IVP SCH (13:30)
== END 2022-05-29 15:35 | disposition home or self-care (01) ==
LOC: ERS 06:45 → ERHOLD 09:16 → 2SW 15:24
PROVIDERS: ADMIT Internal Medicine; ATTEND Internal Medicine
DX: J44.1 Chronic obstructive pulmonary disease with (acute) exacerbation (principal); I11.0 Hypertensive heart disease with heart failure; I50.9 Heart failure, unspecified; I48.0 Paroxysmal atrial fibrillation; G47.33 Obstructive sleep apnea (adult) (pediatric); F17.220 Nicotine dependence, chewing tobacco, uncomplicated; E66.9 Obesity, unspecified; Z68.37 Body mass index [BMI] 37.0-37.9, adult; Z79.899 Other long term (current) drug therapy; Z20.822 Contact with and (suspected) exposure to COVID-19
CPT/HCPCS: 36415; 71045; 71275; 80048; 80053; 80306; 83880; 84484; 85025; 93005; 94640; 96372; 96374; 96376; G0378; J1650; J2920; J7620; Q9967; U0002

== ENCOUNTER 2022-08-02 19:36 | Inpatient (IN) | payer OTHER ==
[2022-08-02 20:34] LABS: #Eosinphils 0.1 thou/uL (0.0-0.7); #Lymphocytes 2.1 thou/uL (1.20-3.40); #Neutrophils 13.1 thou/uL (1.40-6.50); %Basophils 0.2 % (0.0-1.0); %Eosinophils 0.4 % (0.0-10.0); %Neutrophils 80.4 % (42.0-75.0); Hemoglobin 12.8 g/dL (14.0-18.0); Mean Corpuscular HGB CONC 32.4 g/dL (32.0-36.0); Mean Corpuscular Hemoglobin 28.8 pg (27.0-31.0); Mean Corpuscular Volume 88.8 fl (78.0-98.0); Platelet Count 270 10x3/uL (130-400); RBC Distribution Width 15.9 % (11.5-14.5); Red Blood Cell (RBC) Count 4.46 mill/uL (4.70-6.10); White Blood Cell (WBC) Count 16.2 10x3/uL (4.8-10.8)
[2022-08-02 20:55] LABS: ALT (SGPT) 21 U/L (8-55); AST (SGOT) 16 U/L (5-34); Albumin 3.6 g/dL (3.5-5.0); Alkaline Phosphatase 100 U/L (40-110); Anion Gap 14 mmol/L (10-20); BUN (Urea Nitrogen) 13 mg/dL (8.4-25.7); Bilirubin, Total 0.8 mg/dL (0.2-1.2); Calc. Creatinine Clearance 0 mL/min (70-130); Calcium 8.9 mg/dL (7.8-10.44); Carbon Dioxide 24 mmol/L (22-29); Chloride 105 mmol/L (98-107); Estimated GFR 100; Globulin 3.5 g/dL (2.4-3.5); Glucose 139 mg/dL (70-105); Potassium 4.1 mmol/L (3.5-5.1); Protein, Total 7.1 g/dL (6.0-8.3); Sodium 139 mmol/L (136-145)
[2022-08-02] MEDS ORDERED: Furosemide 40 MG/4 ML VIAL ONE (21:12)
[2022-08-02] MEDS ORDERED: VANCOMYCIN 1.75 GM/500 ML BAG 1.75 GM in Premix Bag 1 BAG IVPB SCH (22:45)
[2022-08-02] MEDS ORDERED: Cefepime 2 GM VIAL ONE (22:57)
[2022-08-02] MEDS ORDERED: Ondansetron ODT 4 MG TAB PO PRN (23:52)
[2022-08-03 01:25] LABS: Troponin I Less than 0.010 ng/mL (< 0.028)
[2022-08-03] MEDS ORDERED: Acetaminophen 325 MG TAB ONE (02:59)
[2022-08-03] MEDS: Acetaminophen 325 MG TAB PO PRN ×3 (03:03→20:22)
[2022-08-03 05:47] LABS: #Eosinphils 0.1 thou/uL (0.0-0.7); #Lymphocytes 2.1 thou/uL (1.20-3.40); #Monocytes 0.7 thou/uL (0.11-0.59); #Neutrophils 10.3 thou/uL (1.40-6.50); %Basophils 0.2 % (0.0-1.0); %Eosinophils 0.7 % (0.0-10.0); %Lymphocytes 15.6 % (21.0-51.0); %Monocytes 5.2 % (0.0-10.0); %Neutrophils 78.3 % (42.0-75.0); Hemoglobin 12.6 g/dL (14.0-18.0); Mean Corpuscular HGB CONC 32.8 g/dL (32.0-36.0); Mean Corpuscular Hemoglobin 29.1 pg (27.0-31.0); Mean Corpuscular Volume 88.7 fl (78.0-98.0); Mean Platelet Volume 8.5 fL (7.4-10.4); Platelet Count 262 10x3/uL (130-400); Red Blood Cell (RBC) Count 4.35 mill/uL (4.70-6.10); White Blood Cell (WBC) Count 13.2 10x3/uL (4.8-10.8)
[2022-08-03 06:09] LABS: Anion Gap 13 mmol/L (10-20); BUN (Urea Nitrogen) 13 mg/dL (8.4-25.7); Calc. Creatinine Clearance 168 mL/min (70-130); Calcium 8.2 mg/dL (7.8-10.44); Carbon Dioxide 25 mmol/L (22-29); Chloride 103 mmol/L (98-107); Estimated GFR 104; Glucose 140 mg/dL (70-105); Potassium 3.4 mmol/L (3.5-5.1); Sodium 138 mmol/L (136-145)
[2022-08-03 06:16] LABS: Troponin I Less than 0.010 ng/mL (< 0.028)
[2022-08-03] MEDS ORDERED: Aspirin Chewable 81 MG TAB ONE (08:20)
[2022-08-03] MEDS ORDERED: Potassium Chloride 20 MEQ TAB ONE (08:20)
[2022-08-03] MEDS ORDERED: Furosemide 40 MG/4 ML VIAL ONE (08:20)
[2022-08-03] MEDS ORDERED: Famotidine 20 MG TAB ONE (08:20)
[2022-08-03] MEDS ORDERED: Cefepime 1 GM VIAL ONE (08:20)
[2022-08-03] MEDS: Aspirin Chewable 81 MG TAB PO SCH (08:50)
[2022-08-03] MEDS: Famotidine 20 MG TAB PO SCH ×2 (08:50→20:22)
[2022-08-03] MEDS: Metoprolol Tartrate 100 MG TAB PO SCH (08:51)
[2022-08-03] MEDS: Famotidine/PF 20 mg/2ml Vial SLOW IVP SCH ×2 (08:51→20:34)
[2022-08-03] MEDS: Lisinopril 20 MG TAB PO SCH (08:51)
[2022-08-03] MEDS: Rivaroxaban 10 MG TAB PO SCH (08:51)
[2022-08-03] MEDS: Furosemide 40 MG/4 ML VIAL SLOW IVP SCH (08:51)
[2022-08-03] MEDS: Potassium Chloride 20 MEQ TAB PO SCH (08:51)
[2022-08-03] MEDS ORDERED: Multivitamin W/ Minerals 1 TAB ONE (08:53)
[2022-08-03] MEDS: Multivitamin W/ Minerals 1 TAB PO SCH (08:55)
[2022-08-03] MEDS ORDERED: Cefepime 1 GM in Sodium Chloride 0.9% 100 ML IVPB SCH (09:00)
[2022-08-03] MEDS ORDERED: Furosemide 40 MG TAB PO SCH (09:00)
[2022-08-03] MEDS: Cefepime 2 GM in Sodium Chloride 0.9% 100 ML IVPB SCH (20:22)
[2022-08-04] MEDS: Acetaminophen 325 MG TAB PO PRN ×2 (03:44→15:45)
[2022-08-04] MEDS ORDERED: Electrolyte Replacement Protocol 1 EACH FS SCH (09:15)
[2022-08-04] MEDS: Lisinopril 20 MG TAB PO SCH (09:20)
[2022-08-04] MEDS: Cefepime 2 GM in Sodium Chloride 0.9% 100 ML IVPB SCH ×2 (09:20→21:07)
[2022-08-04] MEDS: Multivitamin W/ Minerals 1 TAB PO SCH (09:20)
[2022-08-04] MEDS: Metoprolol Tartrate 100 MG TAB PO SCH (09:20)
[2022-08-04] MEDS: Famotidine 20 MG TAB PO SCH ×2 (09:20→21:12)
[2022-08-04] MEDS: Aspirin Chewable 81 MG TAB PO SCH (09:20)
[2022-08-04] MEDS: Rivaroxaban 10 MG TAB PO SCH (09:20)
[2022-08-04] MEDS: Famotidine/PF 20 mg/2ml Vial SLOW IVP SCH (09:21)
[2022-08-04] MEDS: Furosemide 40 MG/4 ML VIAL SLOW IVP SCH (09:21)
[2022-08-04] MEDS: Potassium Chloride 20 MEQ TAB PO SCH (09:21)
[2022-08-04] MEDS ORDERED: Doxycycline 100 MG CAP PO SCH (09:30)
[2022-08-04] MEDS ORDERED: Furosemide 40 MG TAB PO SCH (09:30)
[2022-08-04] MEDS ORDERED: Electrolyte Replacement Protocol FS PRN (09:30)
[2022-08-04] MEDS ORDERED: Potassium Chloride 20 MEQ TAB PO SCH (10:00)
[2022-08-04 10:26] LABS: Anion Gap 10 mmol/L (10-20); BUN (Urea Nitrogen) 14 mg/dL (8.4-25.7); Calc. Creatinine Clearance 156 mL/min (70-130); Calcium 8.7 mg/dL (7.8-10.44); Carbon Dioxide 27 mmol/L (22-29); Chloride 103 mmol/L (98-107); Estimated GFR 101; Glucose 121 mg/dL (70-105); Magnesium 2.2 mg/dL (1.6-2.6); Phosphorus 2.7 mg/dL (2.3-4.7); Potassium 3.7 mmol/L (3.5-5.1); Sodium 136 mmol/L (136-145)
[2022-08-04] MEDS: Saccharomyces boulardii 250 MG CAP PO SCH (13:57)
[2022-08-04 14:22] LABS: Potassium 4.4 mmol/L (3.5-5.1)
[2022-08-04] MEDS ORDERED: Famotidine 20 MG TAB PO SCH (21:00)
[2022-08-04] MEDS: Doxycycline 100 MG CAP PO SCH (21:13)
[2022-08-05] MEDS: Acetaminophen 325 MG TAB PO PRN ×2 (01:14→16:28)
[2022-08-05 05:10] LABS: #Eosinphils 0.1 thou/uL (0.0-0.7); #Lymphocytes 1.6 thou/uL (1.20-3.40); #Monocytes 0.9 thou/uL (0.11-0.59); #Neutrophils 9.4 thou/uL (1.40-6.50); %Basophils 0.1 % (0.0-1.0); %Eosinophils 0.7 % (0.0-10.0); %Lymphocytes 13.3 % (21.0-51.0); %Monocytes 7.4 % (0.0-10.0); %Neutrophils 78.5 % (42.0-75.0); Anion Gap 12 mmol/L (10-20); BUN (Urea Nitrogen) 15 mg/dL (8.4-25.7); Calc. Creatinine Clearance 168 mL/min (70-130); Calcium 9.1 mg/dL (7.8-10.44); Carbon Dioxide 26 mmol/L (22-29); Chloride 104 mmol/L (98-107); Estimated GFR 103; Glucose 102 mg/dL (70-105); Hemoglobin 12.2 g/dL (14.0-18.0); Mean Corpuscular HGB CONC 32.6 g/dL (32.0-36.0); Mean Corpuscular Hemoglobin 29.3 pg (27.0-31.0); Mean Platelet Volume 8.1 fL (7.4-10.4); Platelet Count 314 10x3/uL (130-400); Potassium 4.9 mmol/L (3.5-5.1); RBC Distribution Width 15.8 % (11.5-14.5); Red Blood Cell (RBC) Count 4.16 mill/uL (4.70-6.10); Sodium 137 mmol/L (136-145)
[2022-08-05] MEDS: Aspirin Chewable 81 MG TAB PO SCH (08:48)
[2022-08-05] MEDS: Cefepime 2 GM in Sodium Chloride 0.9% 100 ML IVPB SCH ×2 (08:48→19:54)
[2022-08-05] MEDS: Rivaroxaban 10 MG TAB PO SCH (08:48)
[2022-08-05] MEDS: Famotidine 20 MG TAB PO SCH ×2 (08:48→19:54)
[2022-08-05] MEDS: Multivitamin W/ Minerals 1 TAB PO SCH (08:48)
[2022-08-05] MEDS: Lisinopril 20 MG TAB PO SCH (08:48)
[2022-08-05] MEDS: Potassium Chloride 20 MEQ TAB PO SCH (08:48)
[2022-08-05] MEDS: Furosemide 40 MG TAB PO SCH (08:48)
[2022-08-05] MEDS: Metoprolol Tartrate 50 MG TAB PO SCH ×2 (08:48→19:54)
[2022-08-05] MEDS: Doxycycline 100 MG CAP PO SCH ×2 (08:48→19:54)
[2022-08-05] MEDS: Saccharomyces boulardii 250 MG CAP PO SCH (14:49)
[2022-08-06] MEDS: Acetaminophen 325 MG TAB PO PRN ×2 (04:24→20:20)
[2022-08-06 06:38] LABS: #Eosinphils 0.1 thou/uL (0.0-0.7); #Lymphocytes 1.6 thou/uL (1.20-3.40); #Monocytes 0.9 thou/uL (0.11-0.59); #Neutrophils 9.3 thou/uL (1.40-6.50); %Basophils 0.3 % (0.0-1.0); %Lymphocytes 13.3 % (21.0-51.0); %Monocytes 7.9 % (0.0-10.0); %Neutrophils 77.6 % (42.0-75.0); Hemoglobin 10.8 g/dL (14.0-18.0); Mean Corpuscular HGB CONC 31.1 g/dL (32.0-36.0); Mean Platelet Volume 7.9 fL (7.4-10.4); Platelet Count 351 10x3/uL (130-400); RBC Distribution Width 15.6 % (11.5-14.5); Red Blood Cell (RBC) Count 3.85 mill/uL (4.70-6.10); White Blood Cell (WBC) Count 11.9 10x3/uL (4.8-10.8)
[2022-08-06 07:00] LABS: Anion Gap 12 mmol/L (10-20); BUN (Urea Nitrogen) 14 mg/dL (8.4-25.7); Calc. Creatinine Clearance 174 mL/min (70-130); Calcium 8.8 mg/dL (7.8-10.44); Carbon Dioxide 24 mmol/L (22-29); Chloride 105 mmol/L (98-107); Estimated GFR 104; Glucose 94 mg/dL (70-105); Potassium 4.3 mmol/L (3.5-5.1); Sodium 137 mmol/L (136-145)
[2022-08-06] MEDS: Aspirin Chewable 81 MG TAB PO SCH (08:43)
[2022-08-06] MEDS: Cefepime 2 GM in Sodium Chloride 0.9% 100 ML IVPB SCH (08:43)
[2022-08-06] MEDS: Furosemide 40 MG TAB PO SCH (08:43)
[2022-08-06] MEDS: Doxycycline 100 MG CAP PO SCH ×2 (08:44→20:20)
[2022-08-06] MEDS: Rivaroxaban 10 MG TAB PO SCH (08:44)
[2022-08-06] MEDS: Lisinopril 20 MG TAB PO SCH (08:44)
[2022-08-06] MEDS: Metoprolol Tartrate 50 MG TAB PO SCH ×2 (08:44→20:16)
[2022-08-06] MEDS: Famotidine 20 MG TAB PO SCH ×2 (08:44→20:16)
[2022-08-06] MEDS: Multivitamin W/ Minerals 1 TAB PO SCH (08:44)
[2022-08-06] MEDS: Saccharomyces boulardii 250 MG CAP PO SCH (13:26)
[2022-08-06] MEDS ORDERED: Meropenem 1 GM in Sodium Chloride 0.9% 100 ML IVPB SCH (17:00)
[2022-08-06] MEDS: Meropenem 1 GM in Sodium Chloride 0.9% 100 ML IVPB SCH (18:11)
[2022-08-06 21:28] LABS: Legionella Urinary Ag Negative (Negative); Strep pneumo Urine Ag NEGATIVE (NEGATIVE)
[2022-08-07] MEDS: Meropenem 1 GM in Sodium Chloride 0.9% 100 ML IVPB SCH ×3 (00:55→17:00)
[2022-08-07 07:53] LABS: #Basophils 0.1 thou/uL (0.0-0.2); #Eosinphils 0.2 thou/uL (0.0-0.7); #Lymphocytes 1.8 thou/uL (1.20-3.40); #Monocytes 0.7 thou/uL (0.11-0.59); #Neutrophils 7.1 thou/uL (1.40-6.50); %Basophils 0.6 % (0.0-1.0); %Eosinophils 2.3 % (0.0-10.0); %Lymphocytes 18.3 % (21.0-51.0); %Monocytes 7.4 % (0.0-10.0); %Neutrophils 71.4 % (42.0-75.0); Hemoglobin 12.2 g/dL (14.0-18.0); Mean Corpuscular HGB CONC 32.3 g/dL (32.0-36.0); Mean Corpuscular Hemoglobin 29.1 pg (27.0-31.0); Mean Corpuscular Volume 90.1 fl (78.0-98.0); Mean Platelet Volume 7.8 fL (7.4-10.4); Platelet Count 361 10x3/uL (130-400); RBC Distribution Width 15.8 % (11.5-14.5)
[2022-08-07 08:16] LABS: ALT (SGPT) 59 U/L (8-55); AST (SGOT) 45 U/L (5-34); Albumin 3.3 g/dL (3.5-5.0); Alkaline Phosphatase 141 U/L (40-110); Anion Gap 12 mmol/L (10-20); BUN (Urea Nitrogen) 14 mg/dL (8.4-25.7); Bilirubin, Direct 0.4 mg/dL (0.1-0.3); Bilirubin, Total 0.6 mg/dL (0.2-1.2); Calc. Creatinine Clearance 175 mL/min (70-130); Calcium 9.1 mg/dL (7.8-10.44); Carbon Dioxide 25 mmol/L (22-29); Cardiac Risk 4.3 (Less than 4.5); Chloride 104 mmol/L (98-107); Cholesterol 154 mg/dl (< 200 Desired); Estimated GFR 105; Glucose 97 mg/dL (70-105); HDL Cholesterol 36 mg/dL (>60 Neg Risk); LDL Cholesterol, Calculated 102 mg/dL; Magnesium 2.1 mg/dL (1.6-2.6); Potassium 4.5 mmol/L (3.5-5.1); Protein, Total 7.1 g/dL (6.0-8.3); Sodium 136 mmol/L (136-145); Triglycerides 79 mg/dL (Less than 150)
[2022-08-07 08:22] LABS: Hemoglobin A1c 5.6 % (4.0-6.0)
[2022-08-07] MEDS: Aspirin Chewable 81 MG TAB PO SCH (08:44)
[2022-08-07] MEDS: Rivaroxaban 10 MG TAB PO SCH (08:45)
[2022-08-07] MEDS: Lisinopril 20 MG TAB PO SCH (08:45)
[2022-08-07] MEDS: Metoprolol Tartrate 50 MG TAB PO SCH ×2 (08:45→20:45)
[2022-08-07] MEDS: Multivitamin W/ Minerals 1 TAB PO SCH (08:45)
[2022-08-07] MEDS: Furosemide 40 MG TAB PO SCH ×2 (08:45→15:02)
[2022-08-07] MEDS: Famotidine 20 MG TAB PO SCH ×2 (08:45→20:45)
[2022-08-07] MEDS: Doxycycline 100 MG CAP PO SCH ×2 (08:45→20:45)
[2022-08-07 10:47] VITALS: BMI 34.7
[2022-08-07] MEDS: Saccharomyces boulardii 250 MG CAP PO SCH (15:02)
[2022-08-07] MEDS: Acetaminophen 325 MG TAB PO PRN (20:44)
[2022-08-08] MEDS: Meropenem 1 GM in Sodium Chloride 0.9% 100 ML IVPB SCH ×3 (01:12→18:26)
[2022-08-08 06:38] LABS: #Eosinphils 0.2 thou/uL (0.0-0.7); #Lymphocytes 1.8 thou/uL (1.20-3.40); #Monocytes 0.6 thou/uL (0.11-0.59); #Neutrophils 4.9 thou/uL (1.40-6.50); %Basophils 0.6 % (0.0-1.0); %Eosinophils 3.2 % (0.0-10.0); %Lymphocytes 23.8 % (21.0-51.0); %Monocytes 7.8 % (0.0-10.0); %Neutrophils 64.6 % (42.0-75.0); Hemoglobin 11.1 g/dL (14.0-18.0); Mean Corpuscular HGB CONC 30.3 g/dL (32.0-36.0); Mean Corpuscular Hemoglobin 27.4 pg (27.0-31.0); Mean Corpuscular Volume 90.4 fl (78.0-98.0); Mean Platelet Volume 7.5 fL (7.4-10.4); Platelet Count 425 10x3/uL (130-400); RBC Distribution Width 15.6 % (11.5-14.5); Red Blood Cell (RBC) Count 4.05 mill/uL (4.70-6.10); White Blood Cell (WBC) Count 7.6 10x3/uL (4.8-10.8)
[2022-08-08 07:00] LABS: Anion Gap 13 mmol/L (10-20); BUN (Urea Nitrogen) 13 mg/dL (8.4-25.7); Calc. Creatinine Clearance 184 mL/min (70-130); Calcium 8.7 mg/dL (7.8-10.44); Carbon Dioxide 26 mmol/L (22-29); Chloride 106 mmol/L (98-107); Estimated GFR 106; Glucose 97 mg/dL (70-105); Potassium 3.8 mmol/L (3.5-5.1); Sodium 141 mmol/L (136-145)
[2022-08-08 07:18] LABS: HBCM Index 0.07 S/CO (0-0.79); HBSAg Index 0.23 S/CO (0-0.99); Hep A IgM AB Non-Reactive (NonReactive); Hep A IgM S/CO 0.13 S/CO (0-0.79); Hep B Surf Ag Non-Reactive S/CO (NonReactive); Hep C IgG Ab Non-Reactive (NonReactive); Hep C Index 0.12 S/CO (0-0.79); Hepatitis B Core IgM Abs Non-Reactive (NonReactive)
[2022-08-08] MEDS ORDERED: Magnesium 2 GM/50 ML(in water) 2 GM in Premix Bag 1 BAG IVPB SCH (08:00)
[2022-08-08] MEDS: Metoprolol Tartrate 50 MG TAB PO SCH ×2 (08:47→21:59)
[2022-08-08] MEDS: Famotidine 20 MG TAB PO SCH ×2 (08:47→21:59)
[2022-08-08] MEDS: Multivitamin W/ Minerals 1 TAB PO SCH (08:47)
[2022-08-08] MEDS: Lisinopril 20 MG TAB PO SCH (08:47)
[2022-08-08] MEDS: Furosemide 40 MG TAB PO SCH ×2 (08:47→15:38)
[2022-08-08] MEDS: Doxycycline 100 MG CAP PO SCH ×2 (08:47→21:59)
[2022-08-08] MEDS: Aspirin Chewable 81 MG TAB PO SCH (08:56)
[2022-08-08] MEDS ORDERED: Dexamethasone 4 mg/ml Vial ONE (11:55)
[2022-08-08] MEDS ORDERED: Bupivacaine HCl 0.5%/Epinephrine 1:200,000/PF 30 ml Vial ONE (11:55)
[2022-08-08] MEDS ORDERED: Fentanyl 250 MCG/5 ML VIAL ONE (12:48)
[2022-08-08] MEDS ORDERED: SUGAMMADEX SODIUM 200 MG/2 ML VIAL ONE ×2 (13:45→14:45)
[2022-08-08] MEDS ORDERED: Ondansetron PF 4 MG/2 ML Vial ONE (13:58)
[2022-08-08] MEDS ORDERED: NEOSTIGMINE 3 MG/3 ML SYR 3 MG/3 ML SYRINGE ONE (13:58)
[2022-08-08] MEDS ORDERED: Glycopyrrolate 0.2 MG/ML 5 ML SYRINGE ONE (13:58)
[2022-08-08] MEDS ORDERED: Rocuronium Bromide 10 MG/ML (10ML VIAL) ONE (13:58)
[2022-08-08] MEDS ORDERED: Dexamethasone 20 MG/5 ML VIAL ONE (13:58)
[2022-08-08] MEDS ORDERED: ePHEDrine Sulfate 50 MG/10 ML VIAL ONE (13:58)
[2022-08-08] MEDS ORDERED: Lidocaine 1% PF 5 ML VIAL ONE (13:58)
[2022-08-08] MEDS ORDERED: PROPOFOL 200 MG/20 ML VIAL ONE (13:58)
[2022-08-08] MEDS ORDERED: Ondansetron HCl/PF 4 MG/2 ML Vial IVP PRN (15:04)
[2022-08-08] MEDS ORDERED: Promethazine HCl 25 MG/ML VIAL IM PRN (15:04)
[2022-08-08] MEDS: Saccharomyces boulardii 250 MG CAP PO SCH (15:39)
[2022-08-08] MEDS: Acetaminophen 325 MG TAB PO PRN (18:27)
[2022-08-09] MEDS: Meropenem 1 GM in Sodium Chloride 0.9% 100 ML IVPB SCH ×3 (00:51→16:36)
[2022-08-09] MEDS ORDERED: traMADol HCl 50 MG TAB PO PRN (06:32)
[2022-08-09] MEDS ORDERED: Fentanyl 100 MCG/2 ML VIAL SLOW IVP PRN ×2 (06:32)
[2022-08-09 07:10] LABS: Pleural Fluid, Protein 3.8 g/dL
[2022-08-09 07:13] LABS: Anion Gap 13 mmol/L (10-20); BUN (Urea Nitrogen) 15 mg/dL (8.4-25.7); Calc. Creatinine Clearance 186 mL/min (70-130); Calcium 8.9 mg/dL (7.8-10.44); Carbon Dioxide 26 mmol/L (22-29); Chloride 103 mmol/L (98-107); Estimated GFR 106; Glucose 125 mg/dL (70-105); Magnesium 2.2 mg/dL (1.6-2.6); Sodium 137 mmol/L (136-145)
[2022-08-09 07:19] LABS: #Lymphocytes 1.1 thou/uL (1.20-3.40); #Monocytes 0.6 thou/uL (0.11-0.59); #Neutrophils 10.9 thou/uL (1.40-6.50); %Eosinophils 0.2 % (0.0-10.0); %Lymphocytes 8.9 % (21.0-51.0); %Monocytes 4.4 % (0.0-10.0); %Neutrophils 86.5 % (42.0-75.0); Hemoglobin 11.9 g/dL (14.0-18.0); Mean Corpuscular Hemoglobin 28.8 pg (27.0-31.0); Mean Platelet Volume 7.7 fL (7.4-10.4); Platelet Count 448 10x3/uL (130-400); RBC Distribution Width 15.6 % (11.5-14.5); Red Blood Cell (RBC) Count 4.14 mill/uL (4.70-6.10); White Blood Cell (WBC) Count 12.6 10x3/uL (4.8-10.8)
[2022-08-09] MEDS: Lisinopril 20 MG TAB PO SCH (08:38)
[2022-08-09] MEDS: Metoprolol Tartrate 50 MG TAB PO SCH ×2 (08:38→20:43)
[2022-08-09] MEDS: Doxycycline 100 MG CAP PO SCH ×2 (08:42→20:43)
[2022-08-09] MEDS: Multivitamin W/ Minerals 1 TAB PO SCH (08:42)
[2022-08-09] MEDS: Furosemide 40 MG TAB PO SCH ×2 (08:42→15:31)
[2022-08-09] MEDS: Famotidine 20 MG TAB PO SCH ×2 (08:42→20:43)
[2022-08-09] MEDS: Aspirin Chewable 81 MG TAB PO SCH (08:42)
[2022-08-09] MEDS: Saccharomyces boulardii 250 MG CAP PO SCH (15:31)
[2022-08-10] MEDS: Meropenem 1 GM in Sodium Chloride 0.9% 100 ML IVPB SCH ×3 (00:19→16:56)
[2022-08-10 06:50] LABS: #Eosinphils 0.3 thou/uL (0.0-0.7); #Lymphocytes 2.1 thou/uL (1.20-3.40); #Monocytes 0.7 thou/uL (0.11-0.59); #Neutrophils 9.1 thou/uL (1.40-6.50); %Basophils 0.1 % (0.0-1.0); %Eosinophils 2.1 % (0.0-10.0); %Lymphocytes 17.1 % (21.0-51.0); %Neutrophils 74.7 % (42.0-75.0); Hemoglobin 11.9 g/dL (14.0-18.0); Mean Corpuscular HGB CONC 32.9 g/dL (32.0-36.0); Mean Corpuscular Hemoglobin 29.7 pg (27.0-31.0); Mean Corpuscular Volume 90.2 fl (78.0-98.0); Mean Platelet Volume 7.6 fL (7.4-10.4); Platelet Count 470 10x3/uL (130-400); RBC Distribution Width 15.7 % (11.5-14.5); White Blood Cell (WBC) Count 12.2 10x3/uL (4.8-10.8)
[2022-08-10 07:12] LABS: Anion Gap 11 mmol/L (10-20); BUN (Urea Nitrogen) 15 mg/dL (8.4-25.7); Calc. Creatinine Clearance 181 mL/min (70-130); Carbon Dioxide 29 mmol/L (22-29); Chloride 105 mmol/L (98-107); Estimated GFR 105; Glucose 90 mg/dL (70-105); Magnesium 2.1 mg/dL (1.6-2.6); Potassium 4.7 mmol/L (3.5-5.1); Sodium 140 mmol/L (136-145)
[2022-08-10] MEDS: traMADol HCl 50 MG TAB PO PRN (08:29)
[2022-08-10] MEDS: Doxycycline 100 MG CAP PO SCH ×2 (08:30→20:18)
[2022-08-10] MEDS: Metoprolol Tartrate 50 MG TAB PO SCH ×2 (08:30→20:18)
[2022-08-10] MEDS: Aspirin Chewable 81 MG TAB PO SCH (08:30)
[2022-08-10] MEDS: Famotidine 20 MG TAB PO SCH ×2 (08:30→20:18)
[2022-08-10] MEDS: Lisinopril 20 MG TAB PO SCH (08:30)
[2022-08-10] MEDS: Multivitamin W/ Minerals 1 TAB PO SCH (08:30)
[2022-08-10] MEDS: Furosemide 40 MG TAB PO SCH ×2 (08:31→13:18)
[2022-08-10] MEDS: Saccharomyces boulardii 250 MG CAP PO SCH (13:18)
[2022-08-10 20:08] LABS: QuantiFERON-TB Gold Plus Negative (Negative)
[2022-08-11] MEDS: Meropenem 1 GM in Sodium Chloride 0.9% 100 ML IVPB SCH ×3 (00:27→16:04)
[2022-08-11 07:08] LABS: #Eosinphils 0.4 thou/uL (0.0-0.7); #Lymphocytes 2.4 thou/uL (1.20-3.40); #Monocytes 0.7 thou/uL (0.11-0.59); #Neutrophils 5.3 thou/uL (1.40-6.50); %Monocytes 7.9 % (0.0-10.0); Hemoglobin 11.3 g/dL (14.0-18.0); Mean Corpuscular Hemoglobin 28.6 pg (27.0-31.0); Mean Corpuscular Volume 89.5 fl (78.0-98.0); Mean Platelet Volume 7.5 fL (7.4-10.4); Platelet Count 448 10x3/uL (130-400); RBC Distribution Width 15.7 % (11.5-14.5); Red Blood Cell (RBC) Count 3.94 mill/uL (4.70-6.10); White Blood Cell (WBC) Count 8.8 10x3/uL (4.8-10.8)
[2022-08-11 07:25] LABS: Anion Gap 12 mmol/L (10-20); BUN (Urea Nitrogen) 16 mg/dL (8.4-25.7); Calc. Creatinine Clearance 176 mL/min (70-130); Calcium 8.9 mg/dL (7.8-10.44); Carbon Dioxide 28 mmol/L (22-29); Chloride 105 mmol/L (98-107); Estimated GFR 104; Glucose 87 mg/dL (70-105); Magnesium 1.8 mg/dL (1.6-2.6); Potassium 4.2 mmol/L (3.5-5.1); Sodium 141 mmol/L (136-145)
[2022-08-11] MEDS ORDERED: Magnesium 2 GM/50 ML(in water) 2 GM in Premix Bag 1 BAG IVPB SCH (08:00)
[2022-08-11] MEDS: Doxycycline 100 MG CAP PO SCH ×2 (08:30→21:12)
[2022-08-11] MEDS: Multivitamin W/ Minerals 1 TAB PO SCH (08:30)
[2022-08-11] MEDS: Rivaroxaban 10 MG TAB PO SCH (08:30)
[2022-08-11] MEDS: Famotidine 20 MG TAB PO SCH ×2 (08:31→21:12)
[2022-08-11] MEDS: Metoprolol Tartrate 50 MG TAB PO SCH ×2 (08:32→21:12)
[2022-08-11] MEDS: Furosemide 40 MG TAB PO SCH ×2 (08:32→15:08)
[2022-08-11] MEDS: Lisinopril 20 MG TAB PO SCH (08:32)
[2022-08-11] MEDS: Aspirin Chewable 81 MG TAB PO SCH (08:32)
[2022-08-11] MEDS: Saccharomyces boulardii 250 MG CAP PO SCH (15:08)
[2022-08-11] MEDS: Acetaminophen 325 MG TAB PO PRN (18:16)
[2022-08-12] MEDS: Meropenem 1 GM in Sodium Chloride 0.9% 100 ML IVPB SCH ×3 (00:28→17:42)
[2022-08-12 07:45] LABS: #Eosinphils 0.5 thou/uL (0.0-0.7); #Lymphocytes 1.7 thou/uL (1.20-3.40); #Monocytes 0.6 thou/uL (0.11-0.59); #Neutrophils 5.1 thou/uL (1.40-6.50); %Basophils 0.3 % (0.0-1.0); %Eosinophils 5.9 % (0.0-10.0); %Monocytes 7.2 % (0.0-10.0); %Neutrophils 64.5 % (42.0-75.0); Mean Corpuscular HGB CONC 31.3 g/dL (32.0-36.0); Mean Corpuscular Hemoglobin 27.9 pg (27.0-31.0); Mean Platelet Volume 7.2 fL (7.4-10.4); Platelet Count 504 10x3/uL (130-400); RBC Distribution Width 15.7 % (11.5-14.5); White Blood Cell (WBC) Count 7.9 10x3/uL (4.8-10.8)
[2022-08-12] MEDS: Doxycycline 100 MG CAP PO SCH ×2 (07:53→20:40)
[2022-08-12] MEDS: Multivitamin W/ Minerals 1 TAB PO SCH ×2 (07:53→07:54)
[2022-08-12] MEDS: Rivaroxaban 10 MG TAB PO SCH (07:53)
[2022-08-12] MEDS: Metoprolol Tartrate 50 MG TAB PO SCH ×2 (07:53→20:40)
[2022-08-12] MEDS: Aspirin Chewable 81 MG TAB PO SCH (07:53)
[2022-08-12] MEDS: Furosemide 40 MG TAB PO SCH ×2 (07:54→13:49)
[2022-08-12] MEDS: Lisinopril 20 MG TAB PO SCH (07:54)
[2022-08-12] MEDS: Famotidine 20 MG TAB PO SCH ×2 (07:54→20:40)
[2022-08-12 08:11] LABS: Anion Gap 9 mmol/L (10-20); BUN (Urea Nitrogen) 13 mg/dL (8.4-25.7); Calc. Creatinine Clearance 200 mL/min (70-130); Calcium 8.8 mg/dL (7.8-10.44); Carbon Dioxide 31 mmol/L (22-29); Chloride 105 mmol/L (98-107); Estimated GFR 109; Glucose 90 mg/dL (70-105); Magnesium 2.1 mg/dL (1.6-2.6); Potassium 3.9 mmol/L (3.5-5.1); Sodium 141 mmol/L (136-145)
[2022-08-12] MEDS: Saccharomyces boulardii 250 MG CAP PO SCH (13:49)
[2022-08-12] MEDS: traMADol HCl 50 MG TAB PO PRN (21:32)
[2022-08-13] MEDS: Meropenem 1 GM in Sodium Chloride 0.9% 100 ML IVPB SCH ×2 (00:53→09:57)
[2022-08-13 08:27] LABS: #Eosinphils 0.4 thou/uL (0.0-0.7); #Lymphocytes 1.8 thou/uL (1.20-3.40); #Monocytes 0.4 thou/uL (0.11-0.59); #Neutrophils 5.5 thou/uL (1.40-6.50); %Basophils 0.1 % (0.0-1.0); %Eosinophils 5.4 % (0.0-10.0); %Lymphocytes 21.8 % (21.0-51.0); %Monocytes 4.6 % (0.0-10.0); Hemoglobin 12.9 g/dL (14.0-18.0); Mean Corpuscular HGB CONC 31.5 g/dL (32.0-36.0); Mean Corpuscular Hemoglobin 27.8 pg (27.0-31.0); Mean Corpuscular Volume 88.2 fl (78.0-98.0); Mean Platelet Volume 7.4 fL (7.4-10.4); Platelet Count 518 10x3/uL (130-400); RBC Distribution Width 15.9 % (11.5-14.5); Red Blood Cell (RBC) Count 4.64 mill/uL (4.70-6.10); White Blood Cell (WBC) Count 8.1 10x3/uL (4.8-10.8)
[2022-08-13 09:00] LABS: Anion Gap 13 mmol/L (10-20); BUN (Urea Nitrogen) 15 mg/dL (8.4-25.7); Calc. Creatinine Clearance 165 mL/min (70-130); Calcium 9.1 mg/dL (7.8-10.44); Carbon Dioxide 27 mmol/L (22-29); Chloride 106 mmol/L (98-107); Estimated GFR 102; Glucose 90 mg/dL (70-105); Potassium 4.9 mmol/L (3.5-5.1); Sodium 141 mmol/L (136-145)
[2022-08-13] MEDS ORDERED: Magnesium 2 GM/50 ML(in water) 2 GM in Premix Bag 1 BAG IVPB SCH (09:15)
[2022-08-13] MEDS: Metoprolol Tartrate 50 MG TAB PO SCH (09:52)
[2022-08-13] MEDS: Rivaroxaban 10 MG TAB PO SCH (09:52)
[2022-08-13] MEDS: Aspirin Chewable 81 MG TAB PO SCH (09:52)
[2022-08-13] MEDS: Doxycycline 100 MG CAP PO SCH (09:53)
[2022-08-13] MEDS: Furosemide 40 MG TAB PO SCH ×2 (09:54→15:14)
[2022-08-13] MEDS: Famotidine 20 MG TAB PO SCH (09:54)
[2022-08-13] MEDS: Lisinopril 20 MG TAB PO SCH (09:54)
[2022-08-13] MEDS: Saccharomyces boulardii 250 MG CAP PO SCH (15:14)
[2022-08-13 16:10] VITALS: BP 148/86; TEMP 98.5
== END 2022-08-13 17:00 | disposition home or self-care (01) | DRG 853 ==
LOC: ERS 19:36 → ERHOLD 23:04 → 2NO 08-03 16:13 → T4-A 08-05 16:44
PROVIDERS: ADMIT Hospitalist; ATTEND Hospitalist
PROC: 3E03329 Introduction of Other Anti-infective into Peripheral Vein, Percutaneous Approach (ICD-10-PCS; 2022-08-02)
PROC: 0W9B40Z Drainage of Left Pleural Cavity with Drainage Device, Percutaneous Endoscopic Approach (ICD-10-PCS; principal; 2022-08-08)
DX: A41.9 Sepsis, unspecified organism (principal); I50.33 Acute on chronic diastolic (congestive) heart failure; J18.9 Pneumonia, unspecified organism; J96.01 Acute respiratory failure with hypoxia; J91.8 Pleural effusion in other conditions classified elsewhere; J44.0 Chronic obstructive pulmonary disease with (acute) lower respiratory infection; J44.1 Chronic obstructive pulmonary disease with (acute) exacerbation; Z20.822 Contact with and (suspected) exposure to COVID-19; G47.33 Obstructive sleep apnea (adult) (pediatric); I27.20 Pulmonary hypertension, unspecified; I11.0 Hypertensive heart disease with heart failure; I48.0 Paroxysmal atrial fibrillation; F17.290 Nicotine dependence, other tobacco product, uncomplicated; R94.5 Abnormal results of liver function studies; Z96.651 Presence of right artificial knee joint; E66.9 Obesity, unspecified; Z68.34 Body mass index [BMI] 34.0-34.9, adult; Z79.899 Other long term (current) drug therapy; Z79.82 Long term (current) use of aspirin; Z83.3 Family history of diabetes mellitus
CPT/HCPCS: 36415; 71045; 71250; 76705; 80048; 80053; 80061; 80074; 80076; 83036; 83605; 83615; 83735; 83880; 84100; 84145; 84157; 84443; 84484; 85025; 85652; 86140; 86480; 87040; 87070; 87081; 87205; 87449; 87899; 88112; 88305; 93005; 96365; 96366; 96367; 96375; J0692; J1100; J1940; J1956; J2185; J2405; J2704; J3010; J3370; J3475; J3490; U0003; U0005

== ENCOUNTER 2022-08-22 13:19 | Outpatient (CLI) | payer OTHER | END 2022-08-22 13:20 | disposition home or self-care (01) | LOC: RAD 13:19 | PROVIDERS: ATTEND Thoracic Surgery (Cardiothoracic Vascular Surgery) | DX: J86.9 Pyothorax without fistula (principal); J90 Pleural effusion, not elsewhere classified | CPT/HCPCS: 71046 ==

== ENCOUNTER 2022-09-12 12:34 | Emergency (ER) | payer OTHER ==
[~2022-09-12 12:34] MED LIST: Iopamidol 370 76% 100 ML VIAL ONE
[2022-09-12 13:20] LABS: #Eosinphils 0.1 thou/uL (0.0-0.7); #Monocytes 0.8 thou/uL (0.11-0.59); #Neutrophils 7.8 thou/uL (1.40-6.50); %Basophils 0.4 % (0.0-1.0); %Eosinophils 1.1 % (0.0-10.0); %Lymphocytes 16.8 % (21.0-51.0); %Monocytes 7.9 % (0.0-10.0); %Neutrophils 73.5 % (42.0-75.0); Hemoglobin 12.2 g/dL (14.0-18.0); Mean Corpuscular HGB CONC 30.9 g/dL (32.0-36.0); Mean Corpuscular Hemoglobin 27.5 pg (27.0-31.0); Mean Platelet Volume 9.6 fL (7.4-10.4); Platelet Count 410 10x3/uL (130-400); RBC Distribution Width 17.5 % (11.5-14.5); Red Blood Cell (RBC) Count 4.44 mill/uL (4.70-6.10); White Blood Cell (WBC) Count 10.6 10x3/uL (4.8-10.8)
[2022-09-12 13:46] LABS: ALT (SGPT) 23 U/L (8-55); AST (SGOT) 18 U/L (5-34); Albumin 3.7 g/dL (3.5-5.0); Alkaline Phosphatase 99 U/L (40-110); Anion Gap 14 mmol/L (10-20); BUN (Urea Nitrogen) 14 mg/dL (8.4-25.7); Bilirubin, Total 1.1 mg/dL (0.2-1.2); Calc. Creatinine Clearance 0 mL/min (70-130); Calcium 9.1 mg/dL (7.8-10.44); Carbon Dioxide 25 mmol/L (22-29); Chloride 106 mmol/L (98-107); Estimated GFR 101; Globulin 3.1 g/dL (2.4-3.5); Glucose 96 mg/dL (70-105); Potassium 4.2 mmol/L (3.5-5.1); Protein, Total 6.8 g/dL (6.0-8.3); Sodium 141 mmol/L (136-145)
[2022-09-12] MEDS ORDERED: Aspirin Chewable 81 MG TAB ONE (14:35)
[2022-09-12] MEDS ORDERED: Albuterol 200 PUFF (6.7GM INHALER) INH SCH (14:45)
[2022-09-12] MEDS ORDERED: Albuterol 200 PUFF INH ONE (14:59)
== END 2022-09-12 17:28 | disposition home or self-care (01) ==
LOC: ERS 12:34
DX: J90 Pleural effusion, not elsewhere classified (principal); R79.0 Abnormal level of blood mineral; I10 Essential (primary) hypertension; F17.220 Nicotine dependence, chewing tobacco, uncomplicated; Z79.899 Other long term (current) drug therapy; Z79.82 Long term (current) use of aspirin
CPT/HCPCS: 36415; 71045; 71260; 80053; 83605; 83880; 84484; 85025; 87040; 93005; J7611; Q9967

== ENCOUNTER 2022-09-17 13:01 | Outpatient (CLI) | payer OTHER | END 2022-09-17 13:02 | disposition home or self-care (01) | LOC: RAD 13:01 | PROVIDERS: ATTEND Thoracic Surgery (Cardiothoracic Vascular Surgery) | DX: J86.9 Pyothorax without fistula (principal); J90 Pleural effusion, not elsewhere classified | CPT/HCPCS: 71045 ==

== ENCOUNTER 2022-10-18 13:02 | Outpatient (CLI) | payer OTHER | END 2022-10-18 13:03 | disposition home or self-care (01) | LOC: RAD 13:02 | PROVIDERS: ATTEND Thoracic Surgery (Cardiothoracic Vascular Surgery) | DX: J86.9 Pyothorax without fistula (principal); J90 Pleural effusion, not elsewhere classified | CPT/HCPCS: 71045 ==

== ENCOUNTER 2023-09-07 11:07 | Inpatient (IN) | payer OTHER ==
[2023-09-07] MEDS ORDERED: Boostrix 0.5 ML (Tdap) VIAL (>/=7 yrs of age) ONE (11:21)
[2023-09-07] MEDS ORDERED: CEFAZOLIN 1 GM VIAL ONE (11:21)
[2023-09-07] MEDS ORDERED: Sodium Chloride 0.9% 100 ML ONE (11:21)
[2023-09-07 12:16] LABS: #Basophils 0.04 10x3/uL (0.0-0.2); %Basophils 0.3 % (0.0-1.0); %Lymphocytes 9.4 % (21.0-51.0); %Monocytes 5.4 % (0.0-10.0); %Neutrophils 83.6 % (42.0-75.0); Hematocrit 45.4 % (42.0-52.0); Hemoglobin 14.9 g/dL (14.0-18.0); Mean Corpuscular HGB CONC 32.8 g/dL (32.0-36.0); Mean Corpuscular Hemoglobin 30.1 pg (27.0-31.0); Mean Corpuscular Volume 91.7 fL (78.0-98.0); Platelet Count 324 10x3/uL (130-400); RBC Distribution Width 13.4 % (11.5-14.5); Red Blood Cell (RBC) Count 4.95 mill/uL (4.70-6.10)
[2023-09-07 12:27] LABS: Globulin 3.5 g/dL (2.4-3.5)
[2023-09-07 12:30] LABS: INR-International Normal Ratio 1.7; PTT 40.1 sec (22.9-36.1); Prothrombin Time 19.8 sec (12.0-14.7)
[2023-09-07 12:32] LABS: ALT (SGPT) 29 U/L (8-55); AST (SGOT) 23 U/L (5-34); Albumin 3.5 g/dL (3.5-5.0); Alkaline Phosphatase 83 U/L (40-110); Anion Gap 13 mmol/L (10-20); BUN (Urea Nitrogen) 13 mg/dL (8.4-25.7); Bilirubin, Total 0.9 mg/dL (0.2-1.2); Calc. Creatinine Clearance 0 mL/min (70-130); Calcium 9.1 mg/dL (7.8-10.44); Carbon Dioxide 26 mmol/L (22-29); Chloride 111 mmol/L (98-107); Estimated GFR 84; Glucose 104 mg/dL (70-105); Potassium 4.1 mmol/L (3.5-5.1); Sodium 146 mmol/L (136-145)
[2023-09-07 12:33] LABS: Acetaminophen Less than 10 mcg/mL (10.0-30.0); Alcohol Less than 10.0 mg/dL (Less than 10); Lipase 18 U/L (8-78); Magnesium 1.9 mg/dL (1.6-2.6); Salicylate Less than 8.0 mg/dL (15.0-30.0)
[2023-09-07 12:36] LABS: Troponin I 0.012 ng/mL (< 0.028)
[2023-09-07] MEDS ORDERED: Bisacodyl 5 MG TAB PO PRN (13:17)
[2023-09-07] MEDS ORDERED: Bisacodyl 10 MG SUPP PR PRN (13:17)
[2023-09-07] MEDS ORDERED: Senokot S 8.6-50 MG TAB PO PRN (13:17)
[2023-09-07 15:38] VITALS: BMI 37.9
[2023-09-07] MEDS: Acetaminophen 325 MG TAB PO PRN (17:46)
[2023-09-07 18:20] LABS: Troponin I 0.014 ng/mL (< 0.028)
[2023-09-07] MEDS: Enoxaparin 120 MG/0.8 ML SYRINGE SC SCH (20:45)
[2023-09-07] MEDS: Lisinopril 20 MG TAB PO SCH (20:45)
[2023-09-07 21:12] LABS: Amphetamine Not Detected (NotDetected); Barbiturates Screen Not Detected (NotDetected); Benzodiazepine Screen Not Detected (NotDetected); Cocaine Metabolite Screen Not Detected (NotDetected); Methadone Not Detected (NotDetected); Methamphetamine Not Detected (NotDetected); Opiate Screen Not Detected (NotDetected); Oxycodone Screen Not Detected (NotDetected); Phencyclidine (PCP) Not Detected (NotDetected); THC/Cannabinoid Screen Detected (NotDetected); Tricyclic Screen Not Detected (NotDetected)
[2023-09-07 22:31] LABS: Troponin I 0.015 ng/mL (< 0.028)
[2023-09-08 05:14] LABS: #Basophils 0.04 10x3/uL (0.0-0.2); %Basophils 0.5 % (0.0-1.0); %Eosinophils 2.8 % (0.0-10.0); %Lymphocytes 20.6 % (21.0-51.0); %Monocytes 9.4 % (0.0-10.0); %Neutrophils 66.3 % (42.0-75.0); Hematocrit 41.8 % (42.0-52.0); Mean Corpuscular HGB CONC 33.5 g/dL (32.0-36.0); Mean Corpuscular Volume 92.7 fL (78.0-98.0); Platelet Count 293 10x3/uL (130-400); RBC Distribution Width 13.3 % (11.5-14.5); Red Blood Cell (RBC) Count 4.51 mill/uL (4.70-6.10)
[2023-09-08 05:26] LABS: INR-International Normal Ratio 1.3; Prothrombin Time 16.6 sec (12.0-14.7)
[2023-09-08 05:41] LABS: Hemoglobin A1c 5.1 % (4.0-6.0)
[2023-09-08 05:45] LABS: ALT (SGPT) 26 U/L (8-55); AST (SGOT) 22 U/L (5-34); Albumin 3.2 g/dL (3.5-5.0); Alkaline Phosphatase 79 U/L (40-110); Anion Gap 12 mmol/L (10-20); BUN (Urea Nitrogen) 12 mg/dL (8.4-25.7); Bilirubin, Direct 0.3 mg/dL (0.1-0.3); Calc. Creatinine Clearance 175 mL/min (70-130); Calcium 8.9 mg/dL (7.8-10.44); Carbon Dioxide 24 mmol/L (22-29); Cardiac Risk 3.8 (Less than 4.5); Chloride 109 mmol/L (98-107); Cholesterol 125 mg/dl (< 200 Desired); Estimated GFR 103; Glucose 99 mg/dL (70-105); HDL Cholesterol 33 mg/dL (>60 Neg Risk); LDL Cholesterol, Calculated 67 mg/dL; Potassium 3.7 mmol/L (3.5-5.1); Protein, Total 6.5 g/dL (6.0-8.3); Sodium 141 mmol/L (136-145); Triglycerides 127 mg/dL (Less than 150)
[2023-09-08] MEDS: Enoxaparin 120 MG/0.8 ML SYRINGE SC SCH (08:50)
[2023-09-09] MEDS: hydrALAZINE 20 MG/ML VIAL SLOW IVP PRN (03:47)
[2023-09-09 06:01] LABS: #Basophils 0.04 10x3/uL (0.0-0.2); %Basophils 0.6 % (0.0-1.0); %Eosinophils 4.7 % (0.0-10.0); %Lymphocytes 27.4 % (21.0-51.0); Hematocrit 45.3 % (42.0-52.0); Hemoglobin 15.3 g/dL (14.0-18.0); Mean Corpuscular HGB CONC 33.8 g/dL (32.0-36.0); Mean Corpuscular Hemoglobin 30.5 pg (27.0-31.0); Mean Corpuscular Volume 90.2 fL (78.0-98.0); Mean Platelet Volume 10.3 fL (7.4-10.4); Platelet Count 316 10x3/uL (130-400); RBC Distribution Width 13.2 % (11.5-14.5); Red Blood Cell (RBC) Count 5.02 mill/uL (4.70-6.10)
[2023-09-09 06:11] LABS: INR-International Normal Ratio 1.1; Prothrombin Time 14.1 sec (12.0-14.7)
[2023-09-09 06:12] LABS: PTT 43.8 sec (22.9-36.1)
[2023-09-09 06:22] LABS: Anion Gap 16 mmol/L (10-20); BUN (Urea Nitrogen) 9 mg/dL (8.4-25.7); Calc. Creatinine Clearance 207 mL/min (70-130); Calcium 9.3 mg/dL (7.8-10.44); Carbon Dioxide 19 mmol/L (22-29); Chloride 108 mmol/L (98-107); Estimated GFR 108; Glucose 101 mg/dL (70-105); Magnesium 1.9 mg/dL (1.6-2.6); Potassium 3.1 mmol/L (3.5-5.1); Sodium 140 mmol/L (136-145)
[2023-09-09] MEDS: Rosuvastatin 10 MG TAB PO SCH (08:11)
[2023-09-09] MEDS: Multivit, Therapeutic 1 TAB PO SCH (08:11)
[2023-09-09] MEDS: Potassium Chloride 20 MEQ TAB PO SCH (10:39)
[2023-09-09] MEDS: HYDROcodone/Acetaminophen 10/325 mg Tablet PO PRN (14:47)
[2023-09-09] MEDS: Ondansetron PF 4 MG/2 ML Vial IVP PRN (17:07)
[2023-09-10 07:29] LABS: INR-International Normal Ratio 1.1; PTT 49.9 sec (22.9-36.1); Prothrombin Time 14.5 sec (12.0-14.7)
[2023-09-10 08:32] LABS: Anion Gap 15 mmol/L (10-20); BUN (Urea Nitrogen) 13 mg/dL (8.4-25.7); Calc. Creatinine Clearance 149 mL/min (70-130); Calcium 9.3 mg/dL (7.8-10.44); Carbon Dioxide 22 mmol/L (22-29); Chloride 105 mmol/L (98-107); Estimated GFR 98; Glucose 85 mg/dL (70-105); Potassium 3.3 mmol/L (3.5-5.1); Sodium 139 mmol/L (136-145)
[2023-09-10 09:49] LABS: #Basophils 0.05 10x3/uL (0.0-0.2); %Basophils 0.7 % (0.0-1.0); %Eosinophils 2.7 % (0.0-10.0); %Lymphocytes 27.8 % (21.0-51.0); %Monocytes 10.8 % (0.0-10.0); %Neutrophils 57.7 % (42.0-75.0); Mean Corpuscular HGB CONC 32.6 g/dL (32.0-36.0); Mean Corpuscular Hemoglobin 29.9 pg (27.0-31.0); Mean Corpuscular Volume 91.7 fL (78.0-98.0); Mean Platelet Volume 11.3 fL (7.4-10.4); Platelet Count 357 10x3/uL (130-400); Red Blood Cell (RBC) Count 4.69 mill/uL (4.70-6.10)
[2023-09-10] MEDS: Potassium Chloride 20 MEQ TAB PO SCH (12:52)
[2023-09-10] MEDS: Rosuvastatin 10 MG TAB PO SCH (21:09)
[2023-09-11 06:10] LABS: #Basophils 0.04 10x3/uL (0.0-0.2); %Basophils 0.6 % (0.0-1.0); %Eosinophils 4.8 % (0.0-10.0); %Lymphocytes 28.7 % (21.0-51.0); %Monocytes 10.6 % (0.0-10.0); Hematocrit 43.3 % (42.0-52.0); Hemoglobin 14.1 g/dL (14.0-18.0); Mean Corpuscular HGB CONC 32.6 g/dL (32.0-36.0); Mean Corpuscular Hemoglobin 30.5 pg (27.0-31.0); Mean Corpuscular Volume 93.5 fL (78.0-98.0); Mean Platelet Volume 10.1 fL (7.4-10.4); Platelet Count 317 10x3/uL (130-400); RBC Distribution Width 13.6 % (11.5-14.5); Red Blood Cell (RBC) Count 4.63 mill/uL (4.70-6.10)
[2023-09-11 06:29] LABS: INR-International Normal Ratio 1.1; Prothrombin Time 14.2 sec (12.0-14.7)
[2023-09-11 06:30] LABS: PTT 47.4 sec (22.9-36.1)
[2023-09-11 06:50] LABS: Anion Gap 12 mmol/L (10-20); BUN (Urea Nitrogen) 13 mg/dL (8.4-25.7); Calc. Creatinine Clearance 172 mL/min (70-130); Calcium 9.4 mg/dL (7.8-10.44); Carbon Dioxide 26 mmol/L (22-29); Chloride 105 mmol/L (98-107); Estimated GFR 102; Glucose 95 mg/dL (70-105); Magnesium 2.1 mg/dL (1.6-2.6); Potassium 4.2 mmol/L (3.5-5.1); Sodium 139 mmol/L (136-145)
[2023-09-11] MEDS ORDERED: Iopamidol 370 76% 100 ML VIAL ONE (09:46)
[2023-09-11] MEDS ORDERED: Heparin 10,000 UNITS/ 10 ML VIAL ONE (13:43)
[2023-09-11] MEDS ORDERED: Lidocaine 1% (PF) 30 ML VIAL ONE (13:43)
[2023-09-11] MEDS ORDERED: CEFAZOLIN 2 GM VIAL ONE (13:43)
[2023-09-11] MEDS ORDERED: Dexamethasone 4 mg/ml Vial ONE (14:25)
[2023-09-11] MEDS ORDERED: Ondansetron PF 4 MG/2 ML Vial ONE (14:25)
[2023-09-11] MEDS ORDERED: Lidocaine 1% PF 5 ML VIAL ONE (14:26)
[2023-09-11] MEDS ORDERED: PROPOFOL 20 ML ONE (14:26)
[2023-09-11] MEDS ORDERED: Midazolam HCl 2 mg/2 ml Vial ONE (14:26)
[2023-09-11] MEDS ORDERED: fentaNYL 50 mcg/mL 1 mL Vial ONE (14:26)
[2023-09-11] MEDS ORDERED: Acetaminophen 325 MG TAB PO PRN (15:03)
[2023-09-12 07:40] LABS: #Basophils Less than 0.03 10x3/uL (0.0-0.2); #Eosinphils Less than 0.03 10x3/uL (0.0-0.7); %Monocytes 6.2 % (0.0-10.0); %Neutrophils 81.5 % (42.0-75.0); Hemoglobin 13.8 g/dL (14.0-18.0); Mean Corpuscular HGB CONC 32.9 g/dL (32.0-36.0); Mean Corpuscular Hemoglobin 30.1 pg (27.0-31.0); Mean Corpuscular Volume 91.7 fL (78.0-98.0); Mean Platelet Volume 10.5 fL (7.4-10.4); Platelet Count 296 10x3/uL (130-400); RBC Distribution Width 13.4 % (11.5-14.5); Red Blood Cell (RBC) Count 4.58 mill/uL (4.70-6.10)
[2023-09-12 07:57] LABS: INR-International Normal Ratio 1.1; Prothrombin Time 14.3 sec (12.0-14.7)
[2023-09-12 07:58] LABS: PTT 35.5 sec (22.9-36.1)
[2023-09-12 08:08] VITALS: TEMP 97.4
[2023-09-12 08:09] LABS: Anion Gap 13 mmol/L (10-20); BUN (Urea Nitrogen) 12 mg/dL (8.4-25.7); Calc. Creatinine Clearance 196 mL/min (70-130); Carbon Dioxide 26 mmol/L (22-29); Chloride 109 mmol/L (98-107); Estimated GFR 106; Glucose 105 mg/dL (70-105); Magnesium 2.1 mg/dL (1.6-2.6); Potassium 4.5 mmol/L (3.5-5.1); Sodium 143 mmol/L (136-145)
[2023-09-12] MEDS: Saccharomyces boulardii 250 MG CAP PO SCH (10:00)
[2023-09-12 14:48] VITALS: BP 147/80
[2023-09-12] MEDS ORDERED: Rivaroxaban 10 MG TAB PO SCH (18:00)
== END 2023-09-12 15:57 | disposition home or self-care (01) | DRG 229 ==
LOC: ERS 11:07 → SUATTDRO 11:07 → IMCU/EMU 13:15
PROVIDERS: ADMIT Family Medicine; ATTEND Internal Medicine
PROC: 02HK3NZ Insertion of Intracardiac Pacemaker into Right Ventricle, Percutaneous Approach (ICD-10-PCS; principal; 2023-09-11)
DX: I49.5 Sick sinus syndrome (principal); D68.9 Coagulation defect, unspecified; I10 Essential (primary) hypertension; K04.7 Periapical abscess without sinus; I48.0 Paroxysmal atrial fibrillation; E66.01 Morbid (severe) obesity due to excess calories; G47.33 Obstructive sleep apnea (adult) (pediatric); Z99.89 Dependence on other enabling machines and devices; Z68.38 Body mass index [BMI] 38.0-38.9, adult; Z86.73 Personal history of transient ischemic attack (TIA), and cerebral infarction without residual deficits; Z79.899 Other long term (current) drug therapy; Z79.01 Long term (current) use of anticoagulants; Z79.82 Long term (current) use of aspirin; R51.9 Headache, unspecified
CPT/HCPCS: 33274; 36415; 70450; 70486; 71045; 72125; 76705; 80048; 80053; 80061; 80076; 80306; 80307; 83036; 83690; 83735; 84443; 84484; 85025; 85610; 85730; 90471; 90715; 93005; 93010; 93306; 93798; 94660; 96374; C1760; C1769; C1894; J0360; J0690; J1100; J1644; J1650; J2001; J2250; J2405; J2704; J3010; J3490; Q9967